=== PATIENT | male | born 1950 | race Caucasian/White ===

== ENCOUNTER 2018-05-18 01:32 | Outpatient (CLI) | payer MEDICARE ==
[2018-05-18 14:17] LABS: INR-International Normal Ratio 0.9; Prothrombin Time 12.4 SEC (12.0-14.7)
[2018-05-18 14:24] LABS: Anion Gap 18 mmol/L (10-20); BUN (Urea Nitrogen) 19 mg/dL (8.4-25.7); Calc. Creatinine Clearance 0 mL/min (70-130); Carbon Dioxide 24 mmol/L (23-31); Chloride 101 mmol/L (98-107); Estimated GFR-MDRD 66; Glucose 198 mg/dL (80-115); Potassium 4.6 mmol/L (3.5-5.1); Sodium 138 mmol/L (136-145)
[2018-05-18 14:37] LABS: Bilirubin Small (Negative); Blood, Urine Negative (Negative); Clarity CLEAR (Clear); Glucose, Urine (Dipstick) >=1000 mg/dL (Negative); Leukocyte Negative (Negative); Nitrite Negative (Negative); Protein, Urine (Dipstick) Negative (Neg-Trace); Specific Gravity, Urine 1.036 (1.002-1.036); Urobilinogen 0.2 mg/dL (0.2-1.0)
[2018-05-18 14:41] LABS: Bacteria/HPF None Seen HPF (None Seen); Hyaline Casts/LPF 0-3 HYALINE CAST LPF (0-3 Hyaline); Squamous Epithelial 0-3 HPF (0-3); WBC/HPF 0-3 HPF (0-3)
[2018-05-18 15:42] LABS: Band 3 % (5-11); Hemoglobin 15.2 g/dL (14.0-18.0); Lymphocytes 69 % (21-51); MDiff Complete? YES; Mean Corpuscular HGB CONC 33.3 g/dL (32.0-36.0); Mean Corpuscular Hemoglobin 28.8 pg (27.0-31.0); Mean Corpuscular Volume 86.7 fL (78.0-98.0); Mean Platelet Volume 7.3 fL (7.4-10.4); Monocytes 6 % (0-10); Neutrophil 20 % (42-75); Platelet Count 249 thou/uL (130-400); Platelet Morphology Comment Appears Adequate; RBC Distribution Width 13.2 % (11.5-14.5); Reactive Lymphocytes 2 % (0-10); Red Blood Cell (RBC) Count 5.25 mill/uL (4.70-6.10); White Blood Cell (WBC) Count 12.9 thou/uL (4.8-10.8)
== END 2018-05-18 01:33 | disposition home or self-care (01) ==
LOC: LABBT 01:32
PROVIDERS: ATTEND Orthopaedic Surgery
DX: Z01.812 Encounter for preprocedural laboratory examination (principal)
CPT/HCPCS: 80048; 81001; 85025; 85610; 87081

== ENCOUNTER 2018-05-30 05:30 | Inpatient (IN) | payer MEDICARE ==
[2018-05-18 12:39] VITALS: BMI 30.4
[2018-05-30] MEDS ORDERED: Sodium Chloride 0.9% 100 ML ONE (05:57)
[2018-05-30] MEDS ORDERED: Tranexamic Acid 1,000 MG/10 ML VIAL ONE (05:57)
[2018-05-30] MEDS ORDERED: Vancomycin HCl 1.5 GM in Sodium Chloride 0.9% 250 ML 300 ML IVPB SCH ×2 (06:15→20:00)
[2018-05-30] MEDS ORDERED: Midazolam HCl 2 mg/2 ml Vial ONE (06:27)
[2018-05-30] MEDS ORDERED: Fentanyl 100 MCG/2 ML VIAL ONE ×4 (06:27→10:05)
[2018-05-30] MEDS ORDERED: Lidocaine 1% (PF) 30 ML VIAL ONE (06:28)
[2018-05-30] MEDS ORDERED: Promethazine HCl 25 MG/ML VIAL IM PRN ×2 (07:28→11:47)
[2018-05-30] MEDS ORDERED: traMADol HCl 50 MG TAB PO PRN ×2 (07:28→11:47)
[2018-05-30] MEDS ORDERED: HYDROcodone/Acetaminophen 10/325 mg Tablet PO PRN ×3 (07:28→11:47)
[2018-05-30] MEDS ORDERED: Ropivacaine HCl/PF 250 ML in Premix Bag 1 BAG NERVE BLCK SCH (07:28)
[2018-05-30] MEDS ORDERED: Zolpidem Tartrate 5 MG TAB PO PRN ×2 (07:28→11:47)
[2018-05-30] MEDS ORDERED: Ondansetron PF 4 MG/2 ML Vial IVP PRN ×2 (07:28→11:47)
[2018-05-30] MEDS ORDERED: Bupivacaine HCl 0.5%/Epinephrine 1:200,000/PF 30 ml Vial ONE (08:01)
--- NOTE | 2018-05-30 08:47 | HP ---
HISTORY OF PRESENT ILLNESS: Mr. Vargas is a pleasant 68-year-old male with bilateral knee osteoarthritis, who presents with left knee pain. The patient has pain rising to position. The pain can be as high as 10/10. Previous injection gave good relief, but only a couple of days, crepitus range of motion. The patient is desired to proceed with operative intervention. PAST MEDICAL HISTORY: Hypertension, diabetes, hyperlipidemia, Funks disease, cardiac bypass. PAST SURGICAL HISTORY: Corneal transplant x2, penile implants, right total shoulder arthroplasty and bypass. ALLERGIES: NO KNOWN DRUG ALLERGIES. MEDICATIONS:see attached list 1. Aspirin. 2. Farxiga. 3. Gemfibrozil. 4. Glipizide. 5. Lisinopril. 6. Meloxicam. 7. Metformin. 8. Omeprazole. 9. Tramadol. SOCIAL HISTORY: The patient is a nonsmoker and no current alcohol. Currently retired. The patient is and is at bedside. PHYSICAL EXAMINATION: GENERAL: Alert and oriented male, in no acute distress, resting comfortably in bed. HEENT: Normocephalic, atraumatic. Extraocular muscles intact. HEART: Regular rate. LUNGS: Symmetric chest rise. ABDOMEN: Soft, nontender. EXTREMITIES: The patient's left knee shows range of motion from about 0 to 120. The patient has good straight leg raise. Neurovascularly intact distally. The patient has pain along the medial joint line. IMAGING DATA: Radiographs of his knee show varus angulation, joint space narrowing, and osteophyte formation consistent with osteoarthritis. ASSESSMENT: 1. Left knee osteoarthritis. 2. Diabetes. 3. Hypertension. 4. Reflux. 5. Coronary artery disease. PLAN: The patient will be taken to the OR for left knee arthroplasty, understands the risks and benefits. The patient received cardiac clearance from Dr. Matthews. I discussed with the patient the risks and benefits of surgery, pain, scar, bleeding, infection, damage to vital structures, failure of procedure and need for hardware removal, revision, and loss of life or limb. The patient understood the risks and benefits and elects to proceed. The patient will be followed in-house by Medicine and Anesthesia. Job ID: [id number] [facility]
--- NOTE | 2018-05-30 09:55 | RAD ---
RIGHIT KNEE TWO VIEWS: History: Knee surgery. Joint replacement. FINDINGS: Total knee prosthesis in place without perihardware lucency. Soft tissue swelling and gas and intraca psular gas. IMPRESSION: Right knee prosthesis is in good radiograph position. POS: [facility]
[2018-05-30] MEDS ORDERED: Acetaminophen 1,000 MG in Premix Bag 1 BAG IVPB SCH (10:15)
[2018-05-30] MEDS ORDERED: Ketorolac Tromethamine 30 MG/ML VIAL IVP PRN (11:47)
[2018-05-30] MEDS ORDERED: diphenhydrAMINE 25 MG CAP PO PRN (11:47)
[2018-05-30] MEDS ORDERED: Fentanyl 100 MCG/2 ML VIAL SLOW IVP PRN ×2 (11:47)
[2018-05-30] MEDS ORDERED: Acetaminophen 325 MG TAB PO PRN (11:47)
[2018-05-30] MEDS ORDERED: Aspirin 81 mg Enteric Coated Tablet PO SCH (12:45)
--- NOTE | 2018-05-30 13:33 | OP ---
DATE OF PROCEDURE: 05/30/2018 PREOPERATIVE. DIAGNOSIS: Left knee osteoarthritis. POSTOPERATIVE DIAGNOSIS: Left knee osteoarthritis. PROCEDURE PERFORMED: Left total knee arthroplasty. CO FOUNDER AND CTO: Donavan Camacho PA-C ANESTHESIA: The patient received an LMA with a single-shot sciatic and adductor canal. ESTIMATED BLOOD LOSS: 100 mL. TOURNIQUET TIME: 68 minutes at 300 mmHg. ANTIBIOTICS: Ancef 2 g, vancomycin 1.5 g, and TXA 1 g. IMPLANTS: Fly Triathlon size 5 left femur, A32 patella, a size 4 tibial baseplate, and a 4 CS 9 mm poly. COMPLICATIONS: None. HISTORY OF PRESENT ILLNESS: Mr. Vargas is a 68-year-old male, who presented to me with left knee pain for greater than a year. The patient's pain resolved in a sitting position. The patient's pain is severe, rated as 10/10. Injection provided good relief, failed conservative measures, desired to proceed with left knee arthroplasty, have been cleared by his driller and reamer. He understood the risks and benefits of surgery to include pain, scar, bleeding, infection, damage to vital structures, decreased range of motion and strength, nonunion, malunion, fracture , blood loss, need for further interventions, loss of life or limb. The patient understood risks and benefits and elected to proceed. DESCRIPTION OF PROCEDURE: Time-out was performed designating the patient's left lower extremity as the operative site, based on site, consents, and marking. After time-out, the patient's left lower extremity was prepped and draped in sterile fashion. Tourniquet was brought up for 68 minutes. Anterior midline incision was made medial patellar arthrotomy exposing the knee and substantial synovitis and medial joint space disease. Minimal lateral changes noted in patellar. We exposed the ACL, excised it, took down the medial lateral meniscus, excised the fat pad, took down the medial soft tissue release and then we pinned our jig into position, mapped out our femur cut, 8, 9, 0 degrees posterior 4 degrees slope. We made our cut, removed the bone and pinned 3-degree external rotation guide in place. We sized to a size 5 femur. It had a good overall alignment. No notching. We cut our femur block anterior and posterior chamfer cuts, we removed the bone. We then moved to our tibia. We released our ACL, took the PCL distally for exposure. Pinned our trail into position cut at 1, 2, and 7, 2 degrees of varus and 4 degrees of slope, removed the osteophytes. We then moved the lamina community health counselor, moved medially, had to rasp medially. I think the saw blade kicked up a little bit on the medial aspect of the knee, removed some medial osteophytes and took down the osteotome and removed osteophytes anything out posteriorly exposed, then released any osteophytes on the PCL. We then moved laterally. The same thing removed the lateral meniscus and removed the soft tissue space. We then pinned our trail into position. We choose a 4 to 5, just a little too much overhang medial to lateral. We placed it in-line with the tibial tubercle anterior 1/3rd down the tibia to the second ray, pinned into position, placed our femur. We tracked the patient had good overall flexion, extension, had a stable drawer. He had overall good alignment. I would like the positions of a trailed implants, had good full extension. We then drilled our femoral lugs. We sized the patella from about 28 to 22 and cut down to fit roughly 15 and placed A32 patella. We tracked the patella, it tracked well. We then everted and removed and cut our keel for tibia. We then removed all implants, cemented our tibia, placed our poly, cemented our femur, removed excess cement. We placed our patellar, removed excess cement, flex the knee back up, removed all excess cement, and washed the joint out. We then closed the medial arthrotomy with 2 Vicryl and 2-0 Quill and glue. The patient will be followed inhouse, likely stay 2 days, given his history of pain. The patient will follow up in 3 weeks. Job ID: [id number] [facility]
[2018-05-30] MEDS: HYDROcodone/Acetaminophen 10/325 mg Tablet PO PRN ×3 (13:51→22:50)
--- NOTE | 2018-05-30 13:53 | PDOC.PN ---
- Subjective Encounter Start Date: 05/30/18 Encounter Start Time: 13:00 Subjective: no pain, sob or chest pain -: is eating lunch - Objective MAR Reviewed: Yes Vital Signs & Weight: Weight Weight 200 lb Phys Exam - Physical Examination HEENT: PERRLA, moist MMs Neck: no JVD, supple Respiratory: no wheezing, no rales Cardiovascular: RRR, no significant murmur Gastrointestinal: soft, non-tender, no distention, positive bowel sounds Musculoskeletal: pulses present left knee in dressing Neurological: non-focal, moves all 4 limbs Psychiatric: normal affect, A&O x 3 Dx/Plan (1) Status post total knee replacement, left Code(s): Z96.652 - PRESENCE OF LEFT ARTIFICIAL KNEE JOINT Status: Acute (2) CAD (coronary artery disease) Code(s): I25.10 - ATHSCL HEART DISEASE OF [place] CORONARY ARTERY W/O ANG PCTRS Status: Chronic Qualifiers: Coronary Disease-Associated Artery/Lesion type: bypass graft [place] vs. transplanted heart: [place] heart Associated angina: without angina Qualified Code(s): I25.810 - Atherosclerosis of coronary artery bypass graft(s) without angina pectoris Comment: 2011 cabg x3 (3) Diabetes mellitus Code(s): E11.9 - TYPE 2 DIABETES MELLITUS WITHOUT COMPLICATIONS Status: Chronic Qualifiers: Diabetes mellitus type: type 2 Diabetes mellitus mcc insulin use: without mcc use Diabetes mellitus complication status: with unspecified complications Qualified Code(s): E11.8 - Type 2 diabetes mellitus with unspecified complications (4) Dyslipidemia Code(s): E78.5 - HYPERLIPIDEMIA, UNSPECIFIED Status: Chronic - Plan on asp bid for dvt prophylaxis -: continue metformin, lisinopril, coverage ac &hs -: fentanyl and narco prn, ropivacaine nr block -: Post op PT per ortho adv -: hemostable * . Review of Systems - Medications/Allergies Allergies/Adverse Reactions: Allergies Allergy/AdvReac Type Severity Reaction Status Date / Time No Known Allergies Allergy Verified 05/18/18 12:40 Medications: Current Medications Acetaminophen (Tylenol) 650 mg PO Q4H PRN PRN Reason: Headache/Fever or Pain Hydrocodone Bitart/Acetaminophen ([place] 10/325) 1 tab PO Q4H PRN PRN Reason: Pain (1-3) Hydrocodone Bitart/Acetaminophen ([place] 10/325) 2 tab PO Q4H PRN PRN Reason: PAIN (4-6) Aspirin (Ecotrin) 81 mg PO BID [facility] Aspirin (Ecotrin) 81 mg PO NOW [facility] Stop: 05/30/18 14:45 Diphenhydramine HCl (Benadryl) 25 mg PO Q6H PRN PRN Reason: Itching Fentanyl (Sublimaze) 50 mcg IV Q1H PRN PRN Reason: BREAKTHROUGH PAIN Ferrous Gluconate (Fergon) 324 mg PO BID-[facility] Glipizide (Glucotrol) 5 mg PO HS [facility] Ropivacaine 250 ml/ Device 250 mls @ 0 mls/hr NERVE BLCK INF [facility] Acetaminophen 1,000 mg/ Device 100 mls @ 400 mls/hr IVPB ONE [facility] Stop: 05/31/18 10:16 Cefazolin Sodium/Dextrose 2 gm (/ Device) 50 mls @ 100 mls/hr IVPB Q8HR [facility] Stop: 05/30/18 22:29 Sodium Chloride (Normal Saline 0.9%) 1,000 mls @ 100 mls/hr IV .Q10H [facility] Vancomycin HCl 1.5 gm/ Sodium (Chloride) 300 mls @ 200 mls/hr IVPB 1999 [facility] Stop: 05/30/18 21:29 Iron/Minerals/Multivitamins (Theragran M) 1 tab PO DAILY [facility] Lisinopril (Zestril) 5 mg PO BID [facility] Metformin HCl (Glucophage) 1,000 mg PO BID [facility] Ondansetron HCl (Zofran) 4 mg IVP Q6H PRN PRN Reason: Nausea/Vomiting Promethazine HCl (Phenergan) 12.5 mg IM Q4H PRN PRN Reason: Nausea/Vomiting Senna/Docusate Sodium (Senokot S) 2 tab PO BID [facility] Sodium Chloride (Flush - Normal Saline) 10 ml IVF PRN PRN PRN Reason: Saline Flush Tramadol HCl (Ultram) 50 mg PO Q6H PRN PRN Reason: Mild Pain (1-3) Tramadol HCl (Ultram) 100 mg PO Q6H PRN PRN Reason: Moderate Pain 4-6 Zolpidem Tartrate (Ambien) 5 mg PO HSPRN PRN PRN Reason: Insomnia
[2018-05-30] MEDS: CEFAZOLIN 2 GM in Premix Bag 1 BAG IVPB SCH ×2 (13:58→22:51)
[2018-05-30] MEDS: Sodium Chloride 0.9% 1,000 ML IV SCH ×2 (14:00→22:51)
[2018-05-30] MEDS ORDERED: Ropivacaine 0.2% HCl/PF (40 MG/20 ML VIAL) ONE (14:44)
[2018-05-30] MEDS ORDERED: Ropivacaine 0.5% HCl/PF (150 MG/30 ML VIAL) ONE (14:44)
[2018-05-30] MEDS ORDERED: Ketorolac Tromethamine 30 MG/ML VIAL ONE (15:25)
[2018-05-30] MEDS ORDERED: PROPOFOL 200 MG/20 ML VIAL ONE (15:25)
[2018-05-30] MEDS ORDERED: Ondansetron PF 4 MG/2 ML Vial ONE (15:25)
[2018-05-30] MEDS ORDERED: Dexamethasone 20 MG/5 ML VIAL ONE (15:25)
[2018-05-30] MEDS ORDERED: Metoprolol Tartrate 5 MG/5 ML VIAL ONE (15:25)
[2018-05-30] MEDS: metFORMIN 500 MG TAB PO SCH (17:29)
[2018-05-30] MEDS: Gemfibrozil 600 MG TAB PO SCH (17:29)
[2018-05-30] MEDS ORDERED: Dextrose 50% Abboject 50 ML SYRINGE IVP PRN (18:55)
[2018-05-30] MEDS ORDERED: Dextrose 5% in Water 1,000 ML IV PRN (18:55)
[2018-05-30] MEDS: HumaLOG 300 UNITS/3 ML VIAL SC PRN (19:22)
[2018-05-30] MEDS: Aspirin 81 mg Enteric Coated Tablet PO SCH (21:00)
[2018-05-30] MEDS ORDERED: metFORMIN 500 MG TAB PO SCH (21:00)
[2018-05-30] MEDS ORDERED: glipiZIDE 5 MG TAB PO SCH ×2 (21:00)
[2018-05-30] MEDS ORDERED: Lisinopril 5 MG TAB PO SCH (21:00)
[2018-05-31] MEDS: traMADol HCl 50 MG TAB PO PRN (00:12)
[2018-05-31] MEDS: Fentanyl 100 MCG/2 ML VIAL IV PRN ×2 (01:01→02:24)
[2018-05-31] MEDS: HYDROcodone/Acetaminophen 10/325 mg Tablet PO PRN (02:35)
[2018-05-31] MEDS: fentaNYL Citrate/PF 2,000 MCG in Sodium Chloride 0.9% 60 ML IV PRN ×2 (04:32→22:23)
[2018-05-31 04:59] LABS: Hemoglobin 11.7 g/dL (14.0-18.0); Mean Corpuscular Hemoglobin 29.7 pg (27.0-31.0); Mean Corpuscular Volume 87.3 fL (78.0-98.0); Mean Platelet Volume 7.2 fL (7.4-10.4); Platelet Count 282 thou/uL (130-400); Red Blood Cell (RBC) Count 3.94 mill/uL (4.70-6.10); White Blood Cell (WBC) Count 16.8 thou/uL (4.8-10.8)
[2018-05-31] MEDS: Gemfibrozil 600 MG TAB PO SCH ×2 (06:30→17:01)
[2018-05-31] MEDS: HumaLOG 300 UNITS/3 ML VIAL SC PRN ×3 (06:31→17:03)
[2018-05-31] MEDS: Sodium Chloride 0.9% 1,000 ML IV SCH ×2 (06:31→17:11)
[2018-05-31 07:52] LABS: Anion Gap 16 mmol/L (10-20); BUN (Urea Nitrogen) 22 mg/dL (8.4-25.7); Calc. Creatinine Clearance 81 mL/min (70-130); Calcium 9.1 mg/dL (7.8-10.44); Carbon Dioxide 24 mmol/L (23-31); Chloride 102 mmol/L (98-107); Estimated GFR-MDRD 65; Glucose 135 mg/dL (80-115); Potassium 3.9 mmol/L (3.5-5.1); Sodium 138 mmol/L (136-145)
[2018-05-31] MEDS ORDERED: Chloraseptic Spray 180 ml Bottle PO PRN (07:54)
[2018-05-31] MEDS ORDERED: Non-Formulary Item 1 EACH (Dapagliflozin Propanediol [Farxiga] 1 TAB) PO SCH (09:00)
[2018-05-31] MEDS: Senokot S 8.6-50 MG TAB PO SCH ×2 (09:05→20:15)
[2018-05-31] MEDS: Multivitamin W/ Minerals 1 TAB PO SCH (09:06)
[2018-05-31] MEDS: Aspirin 81 mg Enteric Coated Tablet PO SCH ×2 (09:06→20:16)
[2018-05-31] MEDS: Ferrous Gluconate 324 MG TAB PO SCH ×2 (09:06→17:01)
[2018-05-31] MEDS: glipiZIDE 5 MG TAB PO SCH ×2 (09:06→17:00)
[2018-05-31] MEDS: Lisinopril 10 MG TAB PO SCH (09:06)
[2018-05-31] MEDS: metFORMIN 500 MG TAB PO SCH ×2 (09:07→17:02)
--- NOTE | 2018-05-31 12:31 | PDOC.PN ---
- Subjective Encounter Start Date: 05/31/18 Encounter Start Time: 08:15 Subjective: couldn't sleep last night due to pain, is on progressive care unit registered nurse now -: no pain at present -: no sob or chest pain or cough - Objective MAR Reviewed: Yes Vital Signs & Weight: Vital Signs (12 hours) Temp Pulse Resp BP Pulse Ox 05/31/18 12:00 98.3 F 82 20 198/95 H 96 05/31/18 07:57 98.4 F 88 18 178/79 H 96 05/31/18 04:11 98.4 F 81 20 164/77 H 96 Weight Admit Weight 200 lb Weight 200 lb I&O: 05/30/18 05/31/18 06/01/18 06:59 06:59 06:59 Intake Total 2860 Output Total 1300 Balance 1560 Result Diagrams: 05/31/18 04:02 05/31/18 04:02 Additional Labs: Accuchecks 05/31/18 05/31/18 05/30/18 11:28 06:31 20:53 POC Glucose 273 H 226 H 382 H 05/30/18 05/30/18 18:07 15:42 POC Glucose 423 H 410 H Phys Exam - Physical Examination HEENT: PERRLA, moist MMs Neck: no JVD, supple Respiratory: no wheezing, no rales Cardiovascular: RRR, no significant murmur Gastrointestinal: soft, non-tender, positive bowel sounds Musculoskeletal: no edema, pulses present left knee post op edema Neurological: non-focal, moves all 4 limbs Psychiatric: normal affect, A&O x 3 Dx/Plan (1) Status post total knee replacement, left Code(s): Z96.652 - PRESENCE OF LEFT ARTIFICIAL KNEE JOINT Status: Acute (2) CAD (coronary artery disease) Code(s): I25.10 - ATHSCL HEART DISEASE OF [place] CORONARY ARTERY W/O ANG PCTRS Status: Chronic Qualifiers: Coronary Disease-Associated Artery/Lesion type: bypass graft [place] vs. transplanted heart: [place] heart Associated angina: without angina Qualified Code(s): I25.810 - Atherosclerosis of coronary artery bypass graft(s) without angina pectoris Comment: 2011 cabg x3 (3) Diabetes mellitus Code(s): E11.9 - TYPE 2 DIABETES MELLITUS WITHOUT COMPLICATIONS Status: Chronic Qualifiers: Diabetes mellitus type: type 2 Diabetes mellitus bindery machine feeder offbearer insulin use: without bindery machine feeder offbearer use Diabetes mellitus complication status: with unspecified complications Qualified Code(s): E11.8 - Type 2 diabetes mellitus with unspecified complications (4) Dyslipidemia Code(s): E78.5 - HYPERLIPIDEMIA, UNSPECIFIED Status: Chronic - Plan dm a bit uncontrolled, increase glipizide to bid -: stable now on progressive care unit registered nurse with no pain -: to ambulate with PT per ortho adv -: not sure if his nerve block is working, anesthesia will f/u -: continue metformin, lisinopril, asp bid, narco, fentanyl prn * . Review of Systems - Medications/Allergies Allergies/Adverse Reactions: Allergies Allergy/AdvReac Type Severity Reaction Status Date / Time No Known Allergies Allergy Verified 05/18/18 12:40 Medications: Current Medications Acetaminophen (Tylenol) 650 mg PO Q4H PRN PRN Reason: Headache/Fever or Pain Hydrocodone Bitart/Acetaminophen ([place] 10/325) 1 tab PO Q4H PRN PRN Reason: Pain (1-3) Hydrocodone Bitart/Acetaminophen ([place] 10/325) 2 tab PO Q4H PRN PRN Reason: PAIN (4-6) Last Admin: 05/31/18 02:35 Dose: 2 tab Aspirin (Ecotrin) 81 mg PO BID [facility] Last Admin: 05/31/18 09:06 Dose: 81 mg Dextrose/Water (Dextrose 50%) 25 gm IVP PRN PRN PRN Reason: HYPOGLYCEMIA PROTOCOL Diphenhydramine HCl (Benadryl) 25 mg PO Q6H PRN PRN Reason: Itching Fentanyl (Sublimaze) 50 mcg IV Q1H PRN PRN Reason: BREAKTHROUGH PAIN Last Admin: 05/31/18 02:24 Dose: 50 mcg Ferrous Gluconate (Fergon) 324 mg PO BID-[facility] Last Admin: 05/31/18 09:06 Dose: 324 mg Gemfibrozil (Lopid) 600 mg PO BID-[facility] Last Admin: 05/31/18 06:30 Dose: 600 mg Glipizide (Glucotrol) 5 mg PO BID-[facility] Last Admin: 05/31/18 09:06 Dose: 5 mg Glucagon (Glucagon) 1 mg IM PRN PRN PRN Reason: HYPOGLYCEMIA PROTOCOL Ropivacaine 250 ml/ Device 250 mls @ 0 mls/hr NERVE BLCK INF [facility] Sodium Chloride (Normal Saline 0.9%) 1,000 mls @ 100 mls/hr IV .Q10H [facility] Last Admin: 05/31/18 06:31 Dose: Not Given Dextrose/Water (D5w) 1,000 mls @ 0 mls/hr IV INF PRN PRN Reason: HYPOGLYCEMIA PROTOCOL Fentanyl Citrate 2,000 mcg/ (Sodium Chloride) 100 mls @ 0 mls/hr IV INF PRN PRN Reason: Pain Last Admin: 05/31/18 04:32 Dose: 100 mls Insulin Human Lispro (Humalog) 0 units SC .MODERATE SLIDING SC PRN; Protocol PRN Reason: MODERATE SLIDING SCALE Last Admin: 05/31/18 06:31 Dose: 4 unit Iron/Minerals/Multivitamins (Theragran M) 1 tab PO DAILY [facility] Last Admin: 05/31/18 09:06 Dose: 1 tab Lisinopril (Zestril) 15 mg PO DAILY [facility] Last Admin: 05/31/18 09:06 Dose: 15 mg Metformin HCl (Glucophage) 1,000 mg PO BID-[facility] Last Admin: 05/31/18 09:07 Dose: 1,000 mg Farxiga 0 each PO DAILY [facility] Ondansetron HCl (Zofran) 4 mg IVP Q6H PRN PRN Reason: Nausea/Vomiting Pantoprazole Sodium (Protonix) 40 mg PO DAILY [facility] Last Admin: 05/31/18 09:07 Dose: 40 mg Phenol (Chloraseptic [place] 180 Ml Bot) 0 ml PO PRN PRN PRN Reason: SORE THROAT Promethazine HCl (Phenergan) 12.5 mg IM Q4H PRN PRN Reason: Nausea/Vomiting Senna/Docusate Sodium (Senokot S) 2 tab PO BID [facility] Last Admin: 05/31/18 09:05 Dose: 2 tab Sodium Chloride (Flush - Normal Saline) 10 ml IVF PRN PRN PRN Reason: Saline Flush Tramadol HCl (Ultram) 50 mg PO Q6H PRN PRN Reason: Mild Pain (1-3) Tramadol HCl (Ultram) 100 mg PO Q6H PRN PRN Reason: Moderate Pain 4-6 Last Admin: 05/31/18 00:12 Dose: 100 mg Zolpidem Tartrate (Ambien) 5 mg PO HSPRN PRN PRN Reason: Insomnia
[2018-05-31] MEDS ORDERED: Hydrochlorothiazide 25 MG TAB PO SCH (16:15)
[2018-05-31] MEDS ORDERED: Gemfibrozil 600 MG TAB PO SCH (16:30)
[2018-05-31] MEDS: Metoprolol Tartrate 25 MG TAB PO SCH (20:16)
[2018-05-31] MEDS ORDERED: cloNIDine 0.1 MG TAB PO PRN (21:27)
[2018-05-31 21:56] LABS: #Basophils 0.1 thou/uL (0.0-0.2); #Lymphocytes 4.9 thou/uL (1.20-3.40); #Neutrophils 10.7 thou/uL (1.40-6.50); %Basophils 0.8 % (0.0-1.0); %Eosinophils 0.2 % (0.0-10.0); %Lymphocytes 29.3 % (21.0-51.0); %Monocytes 6.1 % (0.0-10.0); %Neutrophils 63.6 % (42.0-75.0); Hemoglobin 11.7 g/dL (14.0-18.0); Mean Corpuscular HGB CONC 34.4 g/dL (32.0-36.0); Mean Corpuscular Hemoglobin 29.1 pg (27.0-31.0); Mean Corpuscular Volume 84.5 fL (78.0-98.0); Mean Platelet Volume 6.7 fL (7.4-10.4); Platelet Count 302 thou/uL (130-400); Red Blood Cell (RBC) Count 4.02 mill/uL (4.70-6.10); White Blood Cell (WBC) Count 16.7 thou/uL (4.8-10.8)
[2018-05-31 22:09] LABS: Anion Gap 17 mmol/L (10-20); BUN (Urea Nitrogen) 12 mg/dL (8.4-25.7); Calc. Creatinine Clearance 108 mL/min (70-130); Calcium 9.7 mg/dL (7.8-10.44); Carbon Dioxide 22 mmol/L (23-31); Chloride 98 mmol/L (98-107); Estimated GFR-MDRD Greater than 90; Glucose 156 mg/dL (80-115); Potassium 3.9 mmol/L (3.5-5.1); Sodium 133 mmol/L (136-145)
[2018-06-01 05:57] LABS: Hemoglobin 11.2 g/dL (14.0-18.0); Mean Corpuscular HGB CONC 34.2 g/dL (32.0-36.0); Mean Corpuscular Hemoglobin 29.5 pg (27.0-31.0); Mean Corpuscular Volume 86.4 fL (78.0-98.0); Mean Platelet Volume 6.8 fL (7.4-10.4); Platelet Count 309 thou/uL (130-400); RBC Distribution Width 12.9 % (11.5-14.5); Red Blood Cell (RBC) Count 3.78 mill/uL (4.70-6.10); White Blood Cell (WBC) Count 17.3 thou/uL (4.8-10.8)
[2018-06-01] MEDS: Gemfibrozil 600 MG TAB PO SCH ×2 (06:26→16:07)
[2018-06-01] MEDS: glipiZIDE 5 MG TAB PO SCH ×2 (06:26→16:04)
[2018-06-01] MEDS: Aspirin 81 mg Enteric Coated Tablet PO SCH ×2 (08:37→20:45)
[2018-06-01] MEDS: Senokot S 8.6-50 MG TAB PO SCH ×2 (08:37→20:45)
[2018-06-01] MEDS: Lisinopril 10 MG TAB PO SCH (08:37)
[2018-06-01] MEDS: Multivitamin W/ Minerals 1 TAB PO SCH (08:37)
[2018-06-01] MEDS: metFORMIN 500 MG TAB PO SCH ×2 (08:37→16:07)
[2018-06-01] MEDS: Hydrochlorothiazide 25 MG TAB PO SCH (08:38)
[2018-06-01] MEDS: Metoprolol Tartrate 25 MG TAB PO SCH ×2 (08:38→20:45)
[2018-06-01] MEDS: Ferrous Gluconate 324 MG TAB PO SCH ×2 (08:38→16:10)
[2018-06-01] MEDS ORDERED: HYDROcodone/Acetaminophen 10/325 mg Tablet PO PRN ×2 (10:20→10:21)
[2018-06-01] MEDS ORDERED: Acetaminophen 325 MG TAB PO PRN (10:22)
[2018-06-01] MEDS ORDERED: traMADol HCl 50 MG TAB PO PRN ×2 (10:23)
[2018-06-01] MEDS: HYDROcodone/Acetaminophen 10/325 mg Tablet PO PRN ×2 (13:39→20:43)
--- NOTE | 2018-06-01 14:15 | PDOC.PN ---
- Subjective Encounter Start Date: 06/01/18 Encounter Start Time: 14:12 Subjective: still with pain in operated knee w some swelling - Objective MAR Reviewed: Yes Vital Signs & Weight: Vital Signs (12 hours) Temp Pulse Resp BP BP Pulse Ox 06/01/18 12:00 97.7 F 74 20 144/78 H 96 06/01/18 07:55 97.4 F L 76 18 148/74 H 93 L 06/01/18 03:45 97.9 F 80 18 150/73 H 94 L Weight Admit Weight 200 lb Weight 200 lb I&O: 05/31/18 06/01/18 06/02/18 06:59 06:59 06:59 Intake Total 2860 810 Output Total 1300 Balance 1560 810 Result Diagrams: 06/01/18 05:41 05/31/18 21:40 Additional Labs: Accuchecks 06/01/18 06/01/18 05/31/18 11:53 05:50 20:40 POC Glucose 291 H 195 H 154 H 05/31/18 15:42 POC Glucose 201 H Laboratory Tests 05/31/18 05/31/18 06/01/18 04:02 21:40 05:41 WBC 16.8 H 16.7 H 17.3 H Phys Exam - Physical Examination Constitutional: NAD HEENT: PERRLA, moist MMs, sclera anicteric, oral pharynx no lesions Neck: no nodes, no JVD, supple, full ROM Respiratory: no wheezing, no rales, no rhonchi, clear to auscultation bilateral Cardiovascular: RRR, no significant murmur Gastrointestinal: soft, non-tender, no distention, positive bowel sounds Musculoskeletal: pulses present Left knee w some swelling and mild erythema Neurological: non-focal, normal sensation, moves all 4 limbs Psychiatric: normal affect, A&O x 3 Skin: no rash Dx/Plan (1) Leucocytosis Code(s): D72.829 - ELEVATED WHITE BLOOD CELL COUNT, UNSPECIFIED Status: Acute (2) Status post total knee replacement, left Code(s): Z96.652 - PRESENCE OF LEFT ARTIFICIAL KNEE JOINT Status: Acute (3) CAD (coronary artery disease) Code(s): I25.10 - ATHSCL HEART DISEASE OF [place] CORONARY ARTERY W/O ANG PCTRS Status: Chronic Qualifiers: Coronary Disease-Associated Artery/Lesion type: bypass graft [place] vs. transplanted heart: [place] heart Associated angina: without angina Qualified Code(s): I25.810 - Atherosclerosis of coronary artery bypass graft(s) without angina pectoris Comment: 2011 cabg x3 (4) Diabetes mellitus Code(s): E11.9 - TYPE 2 DIABETES MELLITUS WITHOUT COMPLICATIONS Status: Chronic Qualifiers: Diabetes mellitus type: type 2 Diabetes mellitus fdc insulin use: without fdc use Diabetes mellitus complication status: with unspecified complications Qualified Code(s): E11.8 - Type 2 diabetes mellitus with unspecified complications (5) Dyslipidemia Code(s): E78.5 - HYPERLIPIDEMIA, UNSPECIFIED Status: Chronic (6) Tobacco abuse Code(s): Z72.0 - TOBACCO USE Status: Chronic - Plan DVT proph w/SCDs watch for infection w peristant pain,swelling,leucocytosis in operated knee -: cont home meds as below -: IM team will follow -: am labs -: check UA and blood Cx as well * . Review of Systems - Review of Systems Constitutional: negative: fever, chills, sweats, weakness, malaise, other Respiratory: negative: Cough, Dry, Shortness of Breath, Hemoptysis, SOB with Excertion, Pleuritic Pain, Sputum, Wheezing Cardiovascular: negative: chest pain, palpitations, orthopnea, paroxysmal nocturnal dyspnea, edema, light headedness, other Gastrointestinal: negative: Nausea, Vomiting, Abdominal Pain, Diarrhea, Constipation, Melena, Hematochezia, Other Genitourinary: negative: Dysuria, Frequency, Incontinence, Hematuria, Retention , Other Musculoskeletal: Other Skin: negative: Rash, Lesions, [place], Bruising, Other Neurological: negative: Weakness, Numbness, Incoordination, Change in Speech, Confusion, Seizures, Other - Medications/Allergies Allergies/Adverse Reactions: Allergies Allergy/AdvReac Type Severity Reaction Status Date / Time No Known Allergies Allergy Verified 05/18/18 12:40 Medications: Current Medications Acetaminophen (Tylenol) 650 mg PO Q4H PRN PRN Reason: Headache/Fever Hydrocodone Bitart/Acetaminophen ([place] 10/325) 1 tab PO Q4H PRN PRN Reason: Pain (1-3) Hydrocodone Bitart/Acetaminophen ([place] 10/325) 2 tab PO Q4H PRN PRN Reason: PAIN (4-6) Last Admin: 06/01/18 13:39 Dose: 2 tab Hydrocodone Bitart/Acetaminophen ([place] 10/325) 1 tab PO Q4H PRN PRN Reason: Pain (1-4) Hydrocodone Bitart/Acetaminophen ([place] 10/325) 2 tab PO Q4H PRN PRN Reason: Pain (5-10) Aspirin (Ecotrin) 81 mg PO BID [facility] Last Admin: 06/01/18 08:37 Dose: 81 mg Clonidine (Catapres) 0.1 mg PO Q4H PRN PRN Reason: SBP GREATER THAN 160 Last Admin: 05/31/18 22:17 Dose: 0.1 mg Dextrose/Water (Dextrose 50%) 25 gm IVP PRN PRN PRN Reason: HYPOGLYCEMIA PROTOCOL Diphenhydramine HCl (Benadryl) 25 mg PO Q6H PRN PRN Reason: Itching Fentanyl (Sublimaze) 50 mcg IV Q1H PRN PRN Reason: BREAKTHROUGH PAIN Last Admin: 05/31/18 02:24 Dose: 50 mcg Ferrous Gluconate (Fergon) 324 mg PO BID-[facility] Last Admin: 06/01/18 08:38 Dose: 324 mg Gemfibrozil (Lopid) 600 mg PO BID-[facility] Last Admin: 06/01/18 06:26 Dose: 600 mg Glipizide (Glucotrol) 5 mg PO BID-[facility] Last Admin: 06/01/18 06:26 Dose: 5 mg Glucagon (Glucagon) 1 mg IM PRN PRN PRN Reason: HYPOGLYCEMIA PROTOCOL Hydrochlorothiazide (Hydrochlorothiazide) 25 mg PO DAILY [facility] Last Admin: 06/01/18 08:38 Dose: 25 mg Ropivacaine 250 ml/ Device 250 mls @ 0 mls/hr NERVE BLCK INF [facility] Dextrose/Water (D5w) 1,000 mls @ 0 mls/hr IV INF PRN PRN Reason: HYPOGLYCEMIA PROTOCOL Insulin Human Lispro (Humalog) 0 units SC .MODERATE SLIDING SC PRN; Protocol PRN Reason: MODERATE SLIDING SCALE Last Admin: 05/31/18 17:03 Dose: 4 unit Iron/Minerals/Multivitamins (Theragran M) 1 tab PO DAILY [facility] Last Admin: 06/01/18 08:37 Dose: 1 tab Lisinopril (Zestril) 15 mg PO DAILY [facility] Last Admin: 06/01/18 08:37 Dose: 15 mg Metformin HCl (Glucophage) 1,000 mg PO BID-[facility] Last Admin: 06/01/18 08:37 Dose: 1,000 mg Metoprolol Tartrate (Lopressor) 25 mg PO BID [facility] Last Admin: 06/01/18 08:38 Dose: 25 mg Farxiga 0 each PO DAILY [facility] Ondansetron HCl (Zofran) 4 mg IVP Q6H PRN PRN Reason: Nausea/Vomiting Last Admin: 05/31/18 20:46 Dose: 4 mg Pantoprazole Sodium (Protonix) 40 mg PO DAILY [facility] Last Admin: 06/01/18 08:38 Dose: 40 mg Phenol (Chloraseptic [place] 180 Ml Bot) 0 ml PO PRN PRN PRN Reason: SORE THROAT Promethazine HCl (Phenergan) 12.5 mg IM Q4H PRN PRN Reason: Nausea/Vomiting Senna/Docusate Sodium (Senokot S) 2 tab PO BID [facility] Last Admin: 06/01/18 08:37 Dose: 2 tab Sodium Chloride (Flush - Normal Saline) 10 ml IVF PRN PRN PRN Reason: Saline Flush Tramadol HCl (Ultram) 50 mg PO Q6H PRN PRN Reason: Mild Pain (1-3) Tramadol HCl (Ultram) 100 mg PO Q6H PRN PRN Reason: Moderate Pain 4-6 Last Admin: 05/31/18 00:12 Dose: 100 mg Tramadol HCl (Ultram) 50 mg PO Q6H PRN PRN Reason: PAIN SCALE 1-5 Tramadol HCl (Ultram) 100 mg PO Q6H PRN PRN Reason: PAIN SCALE 6-10 Zolpidem Tartrate (Ambien) 5 mg PO HSPRN PRN PRN Reason: Insomnia
[2018-06-01] MEDS: FARXIGA PO SCH (15:31)
[2018-06-01] MEDS: traMADol HCl 50 MG TAB PO PRN ×2 (16:05→22:06)
[2018-06-01] MEDS: HumaLOG 300 UNITS/3 ML VIAL SC PRN ×2 (16:11→21:01)
[2018-06-01 22:39] LABS: Bilirubin Negative (Negative); Blood, Urine Negative (Negative); Clarity CLEAR (Clear); Glucose, Urine (Dipstick) >=1000 mg/dL (Negative); Leukocyte Negative (Negative); Nitrite Negative (Negative); Protein, Urine (Dipstick) Negative (Neg-Trace); Specific Gravity, Urine 1.021 (1.002-1.036); Urobilinogen 0.2 mg/dL (0.2-1.0)
[2018-06-01 22:40] LABS: Bacteria/HPF None Seen HPF (None Seen); Hyaline Casts/LPF 0-3 HYALINE CAST LPF (0-3 Hyaline); RBC/HPF 0-3 HPF (0-3); Squamous Epithelial None Seen HPF (0-3); WBC/HPF 0-3 HPF (0-3)
[2018-06-01 22:44] LABS: Urine Culture Reflex No No
[2018-06-01] MEDS: Fentanyl 100 MCG/2 ML VIAL IV PRN (23:46)
[2018-06-02] MEDS: HYDROcodone/Acetaminophen 10/325 mg Tablet PO PRN ×3 (00:57→09:22)
[2018-06-02 05:03] LABS: Hemoglobin 10.3 g/dL (14.0-18.0); Mean Corpuscular HGB CONC 34.6 g/dL (32.0-36.0); Mean Corpuscular Hemoglobin 29.9 pg (27.0-31.0); Mean Corpuscular Volume 86.6 fL (78.0-98.0); Mean Platelet Volume 7.3 fL (7.4-10.4); Platelet Count 313 thou/uL (130-400); RBC Distribution Width 12.9 % (11.5-14.5); Red Blood Cell (RBC) Count 3.45 mill/uL (4.70-6.10); White Blood Cell (WBC) Count 14.6 thou/uL (4.8-10.8)
[2018-06-02 05:19] LABS: Anion Gap 13 mmol/L (10-20); BUN (Urea Nitrogen) 21 mg/dL (8.4-25.7); Calc. Creatinine Clearance 103 mL/min (70-130); Calcium 9.5 mg/dL (7.8-10.44); Carbon Dioxide 26 mmol/L (23-31); Chloride 98 mmol/L (98-107); Estimated GFR-MDRD 86; Glucose 187 mg/dL (80-115); Potassium 3.3 mmol/L (3.5-5.1); Sodium 134 mmol/L (136-145)
[2018-06-02] MEDS: Gemfibrozil 600 MG TAB PO SCH (06:20)
[2018-06-02] MEDS: glipiZIDE 5 MG TAB PO SCH (06:20)
[2018-06-02] MEDS: HumaLOG 300 UNITS/3 ML VIAL SC PRN (06:21)
[2018-06-02 08:04] VITALS: BP 131/61; TEMP 97.9
[2018-06-02] MEDS: Lisinopril 10 MG TAB PO SCH (08:16)
[2018-06-02] MEDS: Senokot S 8.6-50 MG TAB PO SCH (08:16)
[2018-06-02] MEDS: Aspirin 81 mg Enteric Coated Tablet PO SCH (08:16)
[2018-06-02] MEDS: Metoprolol Tartrate 25 MG TAB PO SCH (08:18)
[2018-06-02] MEDS: Multivitamin W/ Minerals 1 TAB PO SCH (08:18)
[2018-06-02] MEDS: metFORMIN 500 MG TAB PO SCH (08:18)
[2018-06-02] MEDS: Hydrochlorothiazide 25 MG TAB PO SCH (08:18)
[2018-06-02] MEDS: Ferrous Gluconate 324 MG TAB PO SCH (08:18)
[2018-06-02] MEDS ORDERED: Non-Formulary Item 1 EACH (Omeprazole [Omeprazole] 1 TAB) PO SCH (09:00)
== END 2018-06-02 10:11 | disposition home or self-care (01) | DRG 470 ==
LOC: SDC 05:30 → SJJU 10:32 → OBSVTOIN 05-31 16:23
PROVIDERS: ADMIT Orthopaedic Surgery; ATTEND Orthopaedic Surgery
PROC: 0SRD0J9 Replacement of Left Knee Joint with Synthetic Substitute, Cemented, Open Approach (ICD-10-PCS; principal; 2018-06-01)
PROC: 3E0T3BZ Introduction of Anesthetic Agent into Peripheral Nerves and Plexi, Percutaneous Approach (ICD-10-PCS; 2018-06-01)
DX: M17.0 Bilateral primary osteoarthritis of knee (principal); I10 Essential (primary) hypertension; E11.9 Type 2 diabetes mellitus without complications; E78.5 Hyperlipidemia, unspecified; I25.10 Atherosclerotic heart disease of native coronary artery without angina pectoris; K21.9 Gastro-esophageal reflux disease without esophagitis; Z95.1 Presence of aortocoronary bypass graft; Z94.7 Corneal transplant status; Z96.611 Presence of right artificial shoulder joint; Z79.82 Long term (current) use of aspirin; Z79.84 Long term (current) use of oral hypoglycemic drugs; Z79.899 Other long term (current) drug therapy; Z72.0 Tobacco use
CPT/HCPCS: 36415; 36416; 80048; 81001; 85027; 86850; 86900; 86901; 87040; C1713; C1776; J0131; J0670; J1100; J1885; J2001; J2250; J2405; J2704; J2795; J3010; J3370; J3490; J7050

== ENCOUNTER 2018-07-15 07:04 | Emergency (ER) | payer MEDICARE ==
[2018-07-15 07:45] LABS: #Basophils 0.1 thou/uL (0.0-0.2); #Eosinphils 0.1 thou/uL (0.0-0.7); #Lymphocytes 5.8 thou/uL (1.20-3.40); #Monocytes 0.7 thou/uL (0.11-0.59); #Neutrophils 8.9 thou/uL (1.40-6.50); %Basophils 0.8 % (0.0-1.0); %Eosinophils 0.6 % (0.0-10.0); %Monocytes 4.7 % (0.0-10.0); %Neutrophils 56.9 % (42.0-75.0); Hemoglobin 12.1 g/dL (14.0-18.0); Mean Corpuscular HGB CONC 34.3 g/dL (32.0-36.0); Mean Corpuscular Hemoglobin 29.4 pg (27.0-31.0); Mean Corpuscular Volume 85.7 fL (78.0-98.0); Mean Platelet Volume 6.6 fL (7.4-10.4); Platelet Count 354 thou/uL (130-400); RBC Distribution Width 13.7 % (11.5-14.5); Red Blood Cell (RBC) Count 4.11 mill/uL (4.70-6.10); White Blood Cell (WBC) Count 15.7 thou/uL (4.8-10.8)
[2018-07-15 08:03] LABS: Anion Gap 17 mmol/L (10-20); BUN (Urea Nitrogen) 11 mg/dL (8.4-25.7); Calc. Creatinine Clearance 0 mL/min (70-130); Calcium 9.3 mg/dL (7.8-10.44); Carbon Dioxide 22 mmol/L (23-31); Chloride 103 mmol/L (98-107); Estimated GFR-MDRD Greater than 90; Glucose 184 mg/dL (80-115); Potassium 3.7 mmol/L (3.5-5.1); Sodium 138 mmol/L (136-145)
--- NOTE | 2018-07-15 08:03 | ULT ---
EXAM: Left lower extremity venous Doppler PROVIDED CLINICAL HISTORY: Left foot numbness and foot pain FINDINGS: Grayscale and color Doppler sonography with spectral analysis was performed of the left common femora l, femoral, popliteal, posterior tibial, greater saphenous and profunda femoral veins. The evaluated venous structures demonstrate a normal sonographic appearance. IMPRESSION: No sonographic evidence for left lower extremity deep venous thrombosis.
[2018-07-15] MEDS ORDERED: Morphine 4 MG/ML VIAL ONE ×3 (08:31→09:04)
--- NOTE | 2018-07-15 08:32 | RAD ---
EXAM: 3 views left foot PROVIDED CLINICAL HISTORY: Pain FINDINGS: There is no evidence for fracture or other acute osseous abnormality. Alignment appears anatomic. Fir st MTP degenerative arthrosis. Vascular calcifications are seen IMPRESSION: No evidence for an acute osseous abnormality. If there is persistent clinical concern, conservative m anagement and follow-up imaging advised.
[2018-07-15] MEDS ORDERED: cefTRIAXone\\ROCEPHIN 2 GM VIAL ONE ×2 (08:53→09:04)
== END 2018-07-15 09:50 | disposition home or self-care (01) ==
LOC: ERS 07:04
DX: L03.116 Cellulitis of left lower limb (principal); D72.829 Elevated white blood cell count, unspecified; I10 Essential (primary) hypertension; E11.9 Type 2 diabetes mellitus without complications; E78.5 Hyperlipidemia, unspecified; F17.210 Nicotine dependence, cigarettes, uncomplicated
CPT/HCPCS: 36415; 80048; 85025; 87040; 96365; 96375; J0696; J2270

== ENCOUNTER 2018-09-22 08:00 | Inpatient (IN) | payer MEDICARE ==
[2018-09-22 09:35] LABS: Hemoglobin 12.1 g/dL (14.0-18.0); Mean Corpuscular Hemoglobin 30.1 pg (27.0-31.0); Mean Corpuscular Volume 88.5 fL (78.0-98.0); Mean Platelet Volume 7.1 fL (7.4-10.4); Platelet Count 280 thou/uL (130-400); RBC Distribution Width 13.6 % (11.5-14.5); Red Blood Cell (RBC) Count 4.01 mill/uL (4.70-6.10)
[2018-09-22 09:51] LABS: Anion Gap 17 mmol/L (10-20); BUN (Urea Nitrogen) 25 mg/dL (8.4-25.7); Calc. Creatinine Clearance 79 mL/min (70-130); Calcium 7.8 mg/dL (7.8-10.44); Carbon Dioxide 24 mmol/L (23-31); Chloride 104 mmol/L (98-107); Estimated GFR-MDRD 69; Glucose 146 mg/dL (80-115); Sodium 141 mmol/L (136-145)
[2018-09-22] MEDS ORDERED: Sodium Chloride 0.9% 10 ML ONE (09:55)
[2018-09-22 09:57] LABS: Band 1 % (5-11); Lymphocytes 48 % (21-51); MDiff Complete? YES; Monocytes 3 % (0-10); Neutrophil 42 % (42-75); Platelet Morphology Comment Appears Adequate; RBC Morphology Normal; Reactive Lymphocytes 3 % (0-10)
[2018-09-22] MEDS ORDERED: Bacitracin Zinc Ointment 30 gm TUBE ONE (10:06)
[2018-09-22] MEDS ORDERED: Fentanyl 100 MCG/2 ML VIAL ONE ×5 (10:17→13:18)
[2018-09-22] MEDS ORDERED: HYDROmorphone 2 MG/ML VIAL SLOW IVP PRN (12:12)
[2018-09-22] MEDS ORDERED: Meperidine HCl/PF 25 MG/ML VIAL SLOW IVP PRN (12:12)
[2018-09-22] MEDS ORDERED: PACU-Morphine 4MG/ML VIAL SLOW IVP PRN (12:12)
[2018-09-22] MEDS ORDERED: Promethazine HCl 25 MG/ML VIAL SLOW IVP PRN (12:12)
[2018-09-22] MEDS ORDERED: Promethazine HCl 25 MG/ML VIAL IM PRN (12:12)
[2018-09-22] MEDS ORDERED: Morphine Sulfate 2 MG/ML SYRINGE SLOW IVP PRN (12:12)
[2018-09-22] MEDS ORDERED: Ondansetron HCl/PF 4 MG/2 ML Vial IVP PRN (12:12)
[2018-09-22] MEDS ORDERED: Ketorolac Tromethamine 30 MG/ML VIAL IVP PRN (12:12)
[2018-09-22] MEDS ORDERED: Morphine 4 MG/ML VIAL ONE (12:17)
[2018-09-22] MEDS ORDERED: Labetalol HCl 100 MG/20 ML VIAL ONE (12:47)
[2018-09-22] MEDS ORDERED: hydrALAZINE 20 MG/ML VIAL ONE (13:11)
[2018-09-22] MEDS ORDERED: Morphine 2 MG/ML SYRINGE ONE ×2 (13:19→13:40)
[2018-09-22] MEDS ORDERED: HYDROmorphone 2 MG/ML VIAL ONE (13:54)
--- NOTE | 2018-09-22 14:48 | OP ---
DATE OF PROCEDURE: 09/22/2018 FUR REMODELER: Ludin Thomason PA-C PROCEDURE PERFORMED: Posterior cervical laminectomy C2 through C4, posterolateral arthrodesis, C2 through C4, demineralized bone matrix, local morselized autograft, lateral screw instrumentation, C2 through C4. DESCRIPTION OF PROCEDURE: The patient was brought to the operating room and intubated. He was rolled in the prone position on gel-filled chest rolls with the head fixed in a Aavni head of drama in a neutral position. An incision was made exposing C2 through C4 bilaterally and the level was confirmed by x-ray. We performed complete C4, complete C3, and complete C2 laminectomies, completely decompressing the spinal cord bilaterally. We next placed lateral mass screws at C3 and C4 and C2 body screw on the right. These were connected by la, connected by nuts, which were final tightened. Positioning of all hardware was confirmed by x-ray. The wound was extensively irrigated and MAC hemostasis was secured. A combination of demineralized bone matrix and local morselized autograft was laid over the left lamina and posterolateral surfaces for the purpose of arthrodesis. Vancomycin powder was applied and the wound was then closed in anatomic layers. Job ID: [id number]
[2018-09-22] MEDS ORDERED: traMADol HCl 50 MG TAB PO PRN ×2 (16:01)
[2018-09-22] MEDS ORDERED: Mag-Al 1200 mg/1200 mg/30 ML UDCUP PO PRN (16:01)
[2018-09-22] MEDS ORDERED: Milk Of Magnesia 30 ML UDCUP PO PRN (16:01)
[2018-09-22] MEDS ORDERED: diphenhydrAMINE 50 MG/ML VIAL IVP PRN (16:01)
[2018-09-22] MEDS ORDERED: HYDROcodone/Acetaminophen 10/325 mg Tablet PO PRN (16:01)
[2018-09-22] MEDS ORDERED: diphenhydrAMINE 25 MG CAP PO PRN (16:01)
[2018-09-22] MEDS ORDERED: Ondansetron PF 4 MG/2 ML Vial ONE (16:28)
[2018-09-22] MEDS ORDERED: Glycopyrrolate 0.2 MG/ML 5 ML SYRINGE ONE (16:28)
[2018-09-22] MEDS ORDERED: Rocuronium Bromide 10 MG/ML (10ML VIAL) ONE (16:28)
[2018-09-22] MEDS ORDERED: Lidocaine 1% PF 5 ML VIAL ONE (16:28)
[2018-09-22] MEDS ORDERED: ePHEDrine 50 MG/ML VIAL ONE (16:28)
[2018-09-22] MEDS ORDERED: Dexamethasone 20 MG/5 ML VIAL ONE (16:28)
[2018-09-22] MEDS ORDERED: PROPOFOL 200 MG/20 ML VIAL ONE (16:28)
[2018-09-22] MEDS: Sodium Chloride 0.9% 1,000 ML IV SCH (17:09)
[2018-09-22] MEDS: HYDROcodone/Acetaminophen 10/325 mg Tablet PO PRN ×2 (17:17→23:20)
[2018-09-22] MEDS: Gemfibrozil 600 MG TAB PO SCH (17:18)
[2018-09-22] MEDS ORDERED: Dextrose 50% Abboject 50 ML SYRINGE SLOW IVP PRN (17:21)
[2018-09-22] MEDS ORDERED: Dextrose 5% in Water 1,000 ML IV PRN (17:21)
[2018-09-22] MEDS ORDERED: Ondansetron PF 4 MG/2 ML Vial IVP PRN (17:23)
[2018-09-22] MEDS ORDERED: Lisinopril 10 MG TAB PO SCH (17:30)
[2018-09-22] MEDS: HumaLOG 300 UNITS/3 ML VIAL SC PRN (17:57)
[2018-09-22] MEDS: Morphine 4 MG/ML VIAL SLOW IVP PRN ×2 (18:34→20:47)
[2018-09-22] MEDS: Atorvastatin Calcium 40 MG TAB PO SCH (20:43)
[2018-09-22] MEDS: Pregabalin 75 MG CAP PO SCH (20:44)
[2018-09-22] MEDS: traMADol HCl 50 MG TAB PO SCH (20:45)
[2018-09-22] MEDS ORDERED: metFORMIN 500 MG TAB PO SCH (21:00)
[2018-09-22] MEDS ORDERED: glipiZIDE 5 MG TAB PO SCH (21:00)
[2018-09-22] MEDS: CEFAZOLIN 2 GM in Premix Bag 1 BAG IVPB SCH (21:40)
[2018-09-22] MEDS: hydrALAZINE 20 MG/ML VIAL SLOW IVP PRN (21:41)
--- NOTE | 2018-09-23 00:57 | CON ---
DATE OF CONSULTATION: REASON FOR CONSULTATION: Medical management. HISTORY OF PRESENT ILLNESS: Mr. Vargas is a pleasant 68-year-old male with past medical history significant for coronary artery disease, status post CABG, hypertension, hyperlipidemia, and type 2 diabetes mellitus, who presented to the hospital for elective C2 through C4 laminectomy. The patient today underwent successful procedure, and I am seeing him postoperatively up on the floor. The patient has some [id number] postoperative pain at this time, but it is conversing easily. He has no chest pain or shortness of breath. He has no nausea. He has tolerated a clear liquid diet without issue. The patient states that leading up to his surgery, he was experiencing some tingling in both of his hands and fingers bilaterally. He has also had some leg weakness and issues with his gait from [id number]. Otherwise, he has been doing well and has had no other complaints. REVIEW OF SYSTEMS: A 12-point review of systems performed and is negative except that stated above. PAST MEDICAL HISTORY: As mentioned in the HPI. PAST SURGICAL HISTORY: Right total shoulder arthroplasty, knee replacement, corneal transplant x2, penile implant, and three-vessel coronary artery bypass grafting in 2010. ALLERGIES: NO KNOWN DRUG ALLERGIES. HOME MEDICATIONS: 1. Atorvastatin 40 mg one tablet p.o. q.p.m. 2. Plavix 75 mg daily. 3. Gemfibrozil 600 mg p.o. b.i.d. 4. Glipizide 5 mg one tablet p.o. nightly. 5. Lisinopril 10 mg daily. 6. Meloxicam 15 mg one tablet p.o. daily. 7. Metformin 1000 mg p.o. b.i.d. 8. Omeprazole 40 mg tablet daily. 9. Lyrica 75 mg p.o. b.i.d. 10. Tramadol 50 mg one tablet p.o. t.i.d. 11. Aspirin 81 mg daily. 12. Farxiga 5 mg tablet daily. SOCIAL HISTORY: The patient is a current smoker. He previously has smoked for 17 years and then quit three months ago, but recently started smoking again. No alcohol or illicit drug use, lives with his , who is at bedside. PHYSICAL EXAMINATION: VITAL SIGNS: Blood pressure 157/78, pulse 89, O2 saturation is 94% on room air, and respirations are 18. GENERAL: The patient is a well-appearing male, in no acute distress. HEENT: Head is atraumatic and normocephalic. Mucous membranes are moist. NECK: He does have a bandage on posterior neck. CV: S1 and S2. Regular rate and rhythm. No appreciable murmurs, rubs, or gallops. LUNGS: Regular respiratory rate and pattern. Clear to auscultation bilaterally. ABDOMEN: Positive bowel sounds. Soft, nontender. EXTREMITIES: No appreciable edema. Both lower extremities are warm and well perfused. +5/5 strength bilaterally. NEUROLOGIC: Cranial nerves 2 through 12 are grossly intact. No focal deficits. LABORATORY DATA: White blood cell count 13, hemoglobin 12.1, and platelet count is 280. Chemistry shows sodium 141, potassium 4.0, chloride 104, anion gap 17, BUN 25, and creatinine is 1.06. ASSESSMENT: 1. Status post posterior cervical laminectomy C2 through C4 with Dr. Zavala today. 2. Coronary artery disease, status post three-vessel coronary artery bypass graft in 2010, stable. 3. Type 2 diabetes mellitus. 4. Hypertension. 5. Hyperlipidemia. 6. Gastroesophageal reflux disease. 7. Tobacco abuse. PLAN: At this time, we will initiate sliding scale for the patient's glucose coverage. We will continue home medications of lisinopril and statin. We will obviously hold off on aspirin and Plavix in the setting of recent surgery, and we will hold until okayed by Dr. Zavala. The patient will continue physical therapy. Consistent carb diet. We will follow along. Thank you for the consult. Job ID: [id number]
[2018-09-23] MEDS: hydrALAZINE 20 MG/ML VIAL SLOW IVP PRN (02:34)
[2018-09-23] MEDS: tiZANidine HCl 4 MG TAB PO PRN ×2 (02:36→12:29)
[2018-09-23] MEDS ORDERED: Fentanyl 100 MCG/2 ML VIAL ONE ×2 (03:19→04:41)
[2018-09-23] MEDS: CEFAZOLIN 2 GM in Premix Bag 1 BAG IVPB SCH ×4 (03:21→21:09)
[2018-09-23] MEDS: Sodium Chloride 0.9% 1,000 ML IV SCH ×2 (03:24→17:51)
[2018-09-23] MEDS ORDERED: Thrombin 5000 UNITS/5 ML VIAL ONE (03:57)
[2018-09-23] MEDS ORDERED: SUGAMMADEX SODIUM 200 MG/2 ML VIAL ONE (03:57)
[2018-09-23] MEDS ORDERED: Bacitracin Zinc Ointment 30 gm TUBE ONE (03:57)
[2018-09-23] MEDS ORDERED: SUGAMMADEX SODIUM 500 MG/5 ML VIAL ONE (03:57)
--- NOTE | 2018-09-23 04:25 | OP ---
DATE OF PROCEDURE: 09/23/2018 TRAINING AND DEVELOPMENT COORDINATOR: Jose Raul. PROCEDURE PERFORMED: Re-exploration, cervical wound. DESCRIPTION OF PROCEDURE: The patient was brought to the operating room and intubated. He was rolled in a prone position on gel-filled chest rolls with the head in the foam donut. The Steri-Strips were removed and the surgical site was prepped and draped in sterile fashion. The site was reopened and a dense hematoma was identified subfascially. This was evacuated and the spinal cord was completely decompressed. There were no obvious sites of active bleeding. We removed all old sutures and after complete evacuation of hematoma and hemostasis, vancomycin powder was applied. A drain was left in the epidural space and the wound was closed in anatomic layers. Job ID: [id number]
[2018-09-23] MEDS ORDERED: Promethazine HCl 25 MG/ML VIAL SLOW IVP PRN (04:38)
[2018-09-23] MEDS ORDERED: Promethazine HCl 25 MG/ML VIAL IM PRN (04:38)
[2018-09-23] MEDS ORDERED: Ketorolac Tromethamine 30 MG/ML VIAL IVP PRN (04:38)
[2018-09-23] MEDS ORDERED: Ondansetron HCl/PF 4 MG/2 ML Vial IVP PRN (04:38)
--- NOTE | 2018-09-23 04:43 | PRG ---
DATE OF SERVICE: 09/23/2018 We were notified that the patient had developed some dysesthesias in his arms and some increased weakness that had come on relatively suddenly. We came to evaluate the patient and he was found to have significant weakness and patchy sensory diminution. We decided to explore the wound in the concern for cervical hematoma given the timeframe and the severity of the neurologic deficit. This was done on emergency basis. No family was present and his significant other was called, but not contacted. Job ID: [id number]
[2018-09-23] MEDS: Dexamethasone 4 mg/ml Vial SLOW IVP SCH ×4 (06:34→23:48)
[2018-09-23 07:55] LABS: Hemoglobin 11.9 g/dL (14.0-18.0); Mean Corpuscular HGB CONC 33.9 g/dL (32.0-36.0); Mean Corpuscular Hemoglobin 29.8 pg (27.0-31.0); Mean Corpuscular Volume 88.1 fL (78.0-98.0); Mean Platelet Volume 7.8 fL (7.4-10.4); Platelet Count 288 thou/uL (130-400); RBC Distribution Width 13.9 % (11.5-14.5); Red Blood Cell (RBC) Count 3.98 mill/uL (4.70-6.10)
[2018-09-23 07:58] LABS: Band 9 % (5-11); Lymphocytes 33 % (21-51); MDiff Complete? YES; Monocytes 1 % (0-10); Neutrophil 57 % (42-75)
[2018-09-23] MEDS ORDERED: FARXIGA 5 MG PO SCH (09:00)
[2018-09-23] MEDS ORDERED: Insulin Glargine 10 UNITS in Pre-Filled Syringe 1 EACH SC SCH (09:00)
[2018-09-23] MEDS: Gemfibrozil 600 MG TAB PO SCH ×2 (09:54→16:22)
[2018-09-23] MEDS: Lisinopril 10 MG TAB PO SCH (09:54)
[2018-09-23] MEDS: traMADol HCl 50 MG TAB PO SCH ×3 (09:55→21:09)
[2018-09-23] MEDS: Famotidine/PF 20 mg/2ml Vial SLOW IVP SCH ×2 (09:57→21:09)
[2018-09-23] MEDS: Pregabalin 75 MG CAP PO SCH ×2 (09:57→21:10)
[2018-09-23] MEDS: Morphine 4 MG/ML VIAL SLOW IVP PRN ×2 (10:06→16:27)
--- NOTE | 2018-09-23 10:12 | CON ---
DATE OF CONSULTATION: 09/23/2018 SERVICE: Pulmonary Medicine. REASON FOR CONSULT: ICU patient. HISTORY OF PRESENT ILLNESS: The patient is a 68-year-old white male with past medical history significant for numbness in the arms. It was discovered that he had a cervical lesion that may benefit from a laminectomy. He underwent laminectomy and fusion on September 22, 2018. Immediately following the procedure, the patient had improving neurologic function. That being said, over the course of a couple of hours, he had increasing neurologic dysfunction, went back to the operating room. Hematoma was evacuated. He was then tucked into the ICU. He denies any current fevers, chills, nausea, or vomiting. He has profound weakness in the lower extremities. He has decreased strength in the right upper extremity, and very decreased strength in the left upper extremity. He has a lack of proprioception and vibratory sensation throughout. PAST MEDICAL HISTORY: 1. Hypertension. 2. Dyslipidemia. 3. Type 2 diabetes mellitus. 4. Coronary artery disease. PAST SURGICAL HISTORY: 1. Corneal transplant x2. 2. Penile implants. 3. Right total shoulder arthroplasty. 4. Coronary artery bypass graft surgery. 5. Cervical laminectomy, postop day 1. 6. Left total knee arthroplasty. FAMILY HISTORY: Noncontributory. SOCIAL HISTORY: He uses tobacco. Denies any excessive alcohol use or illicit drug use. He has no exposure to chemicals, dust, asbestos, or tuberculosis. ALLERGIES: NO KNOWN DRUG ALLERGIES. MEDICATIONS: List of his outpatient and inpatient medications were reviewed. I have added some sliding scale insulin. REVIEW OF SYSTEMS: General, head, ears, eyes, nose, throat, cardiovascular, respiratory, GI, , musculoskeletal, neurologic, and skin are negative except as mentioned in the HPI. PHYSICAL EXAMINATION: VITAL SIGNS: Afebrile, pulse 93, blood pressure 136/71, respirations 20, and saturation 94% on 2 L nasal cannula. GENERAL: The patient is awake and alert, in no apparent distress. LUNGS: Very good air entry with minimally prolonged expiratory phase. Appreciate no wheezing, rhonchi, or crackles today. HEART: Normal rate. Regular. ABDOMEN: Soft, nontender, and nondistended. Bowel sounds are positive. MUSCULOSKELETAL: No cyanosis or clubbing. No pitting in the bilateral lower extremities. NEUROLOGIC: The patient has a 2/5 strength in the bilateral lower extremities. He has 3/5 strength in the left upper extremity, and 4-/5 strength in the right upper extremity. He has sensation to sharp and dull throughout the upper and lower extremities. That being said, he lacks proprioception and vibratory sensation in the arms, in the chest down. ASSESSMENT: 1. Cervical laminectomy, complicated by hematoma, status post evacuation, postop day #1. 2. Type 2 diabetes mellitus. 3. Coronary artery disease. DISCUSSION AND PLAN: Obviously, all antiplatelet medication and anticoagulation will not be provided. I will put him on a medium dose sliding scale insulin. We will try to keep his blood pressure under 140. Pulmonary/Critical Care will continue to follow while the patient remains in this location. 70 minutes have been devoted to this patient in various activities. I personally reviewed all imaging studies and laboratory data noted within this document. For fifty percent of this time, I was interacting with the patient at the bedside or coordinating care with the care team. For the remainder of the time I was immediately available to the patient in the hospital unit. Job ID: [id number] MTDD
[2018-09-23] MEDS: HumaLOG 300 UNITS/3 ML VIAL SC PRN ×3 (11:43→21:11)
[2018-09-23] MEDS ORDERED: Lidocaine 1% PF 5 ML VIAL ONE (13:46)
[2018-09-23] MEDS ORDERED: Ondansetron PF 4 MG/2 ML Vial ONE (13:46)
[2018-09-23] MEDS ORDERED: PHENYLEPHRINE-NS 100 MCG/ML 10 ML SYRINGE ONE (13:46)
[2018-09-23] MEDS ORDERED: Dexamethasone 20 MG/5 ML VIAL ONE (13:46)
[2018-09-23] MEDS ORDERED: Succinylcholine Chloride 20 MG/ML 10 ml SYRINGE FS ONE (13:46)
[2018-09-23] MEDS ORDERED: Metoclopramide HCl 10 MG/2 ML VIAL ONE (13:46)
[2018-09-23] MEDS ORDERED: ePHEDrine 50 MG/ML VIAL ONE (13:46)
[2018-09-23] MEDS ORDERED: Rocuronium Bromide 10 MG/ML (10ML VIAL) ONE (13:46)
[2018-09-23] MEDS ORDERED: PROPOFOL 200 MG/20 ML VIAL ONE (13:46)
--- NOTE | 2018-09-23 14:22 | PDOC.PN ---
- Subjective Encounter Start Date: 09/23/18 Encounter Start Time: 11:20 Subjective: no new weakness after evacuation of hematoma -: no chest pain or sob - Objective Resuscitation Status - Order Detail: 09/22/18 16:09 Resuscitation Status Routine Resuscitation Status: FULL: Full Resuscitation MAR Reviewed: Yes Vital Signs & Weight: Vital Signs (12 hours) Temp Pulse Pulse Pulse Resp BP BP 09/23/18 12:00 98.3 F 09/23/18 11:55 96 88 168/85 H 09/23/18 09:54 190/95 H 09/23/18 08:00 09/23/18 07:00 98 F 09/23/18 03:30 09/23/18 02:45 97.7 F 93 20 09/23/18 02:34 190/95 H BP BP Pulse Ox 09/23/18 12:00 09/23/18 11:55 187/86 H 09/23/18 09:54 09/23/18 08:00 99 09/23/18 07:00 09/23/18 03:30 93 L 09/23/18 02:45 200/101 H 93 L 09/23/18 02:34 Weight Weight 193 lb 1.999 oz Most Recent Monitor Data Heart Rate from ECG 73 NIBP 150/75 NIBP BP-Mean 100 Respiration from ECG 12 SpO2 100 I&O: 09/22/18 09/23/18 09/24/18 06:59 06:59 06:59 Intake Total 3530 420 Output Total 5200 1625 Balance -1670 -1205 Result Diagrams: 09/23/18 06:22 09/22/18 09:24 Additional Labs: Accuchecks 09/23/18 09/23/18 09/22/18 11:21 06:18 21:03 POC Glucose 271 H 270 H 196 H 09/22/18 17:48 POC Glucose 224 H Phys Exam - Physical Examination HEENT: PERRLA, moist MMs Neck: no JVD, supple Respiratory: no wheezing, no rales Cardiovascular: RRR, no significant murmur Gastrointestinal: soft, non-tender, positive bowel sounds Musculoskeletal: no edema, pulses present moves upper extr better than lower and left better than right Psychiatric: A&O x 3 Dx/Plan (1) s/p cervical laminectomy Status: Acute Comment: C2-4 09/22,then reexploration to evacuate clots 09/23 (2) CAD (coronary artery disease) Code(s): I25.10 - ATHSCL HEART DISEASE OF [place] CORONARY ARTERY W/O ANG PCTRS Status: Chronic Qualifiers: Coronary Disease-Associated Artery/Lesion type: bypass graft [place] vs. transplanted heart: [place] heart Associated angina: without angina Qualified Code(s): I25.810 - Atherosclerosis of coronary artery bypass graft(s) without angina pectoris Comment: 2011 cabg x3 (3) Diabetes mellitus Code(s): E11.9 - TYPE 2 DIABETES MELLITUS WITHOUT COMPLICATIONS Status: Chronic Qualifiers: Diabetes mellitus type: type 2 Diabetes mellitus detention insulin use: without terminal superintendent use Diabetes mellitus complication status: with unspecified complications (4) Dyslipidemia Code(s): E78.5 - HYPERLIPIDEMIA, UNSPECIFIED Status: Chronic (5) Tobacco abuse Code(s): Z72.0 - TOBACCO USE Status: Chronic - Plan hemostable -: continue steroids, lisinopril, lipitor and gemfibrozil -: PT/OT per nsx advice -: humalog coverage * . Review of Systems - Medications/Allergies Allergies/Adverse Reactions: Allergies Allergy/AdvReac Type Severity Reaction Status Date / Time No Known Allergies Allergy Verified 09/22/18 16:17 Medications: Current Medications Hydrocodone Bitart/Acetaminophen ([place] 10/325) 1 tab PO Q4H PRN PRN Reason: PAIN (1-3) Hydrocodone Bitart/Acetaminophen ([place] 10/325) 2 tab PO Q4H PRN PRN Reason: PAIN (4-6) Last Admin: 09/22/18 23:20 Dose: 2 tab Al Hydroxide/Mg Hydroxide (Maalox) 30 ml PO Q4H PRN PRN Reason: Heartburn or Indigestion Atorvastatin Calcium (Lipitor) 40 mg PO HS IONA Last Admin: 09/22/18 20:43 Dose: 40 mg Cyclobenzaprine HCl (Flexeril) 10 mg PO TID [facility] Dexamethasone (Decadron) 4 mg SLOW IVP Q6HR I[facility] Last Admin: 09/23/18 11:43 Dose: 4 mg Dextrose/Water (Dextrose 50%) 25 gm SLOW IVP PRN PRN PRN Reason: Hypoglycemia Diphenhydramine HCl (Benadryl) 25 mg PO Q6H PRN PRN Reason: Itching Diphenhydramine HCl (Benadryl) 25 mg IVP Q6H PRN PRN Reason: Itching Famotidine (Pepcid) 20 mg SLOW IVP BID [facility] Last Admin: 09/23/18 09:57 Dose: Not Given Gemfibrozil (Lopid) 600 mg PO BID[facility] Last Admin: 09/23/18 09:54 Dose: 600 mg Glucagon (Glucagon) 1 mg IM PRN PRN PRN Reason: Hypoglycemia Hydralazine HCl (Apresoline) 10 mg SLOW IVP Q4H PRN PRN Reason: SBP > 180 and HR < 70 Last Admin: 09/23/18 02:34 Dose: 10 mg Sodium Chloride (Normal Saline 0.9%) 1,000 mls @ 75 mls/hr IV .[id number] [facility] Last Admin: 09/23/18 03:24 Dose: 1,000 mls Dextrose/Water (D5w) 1,000 mls @ 0 mls/hr IV .Q0M PRN PRN Reason: Hypoglycemia Cefazolin Sodium/Dextrose 2 gm (/ Device) 50 mls @ 100 mls/hr IVPB Q8HR [facility] Stop: 09/26/18 06:01 Last Admin: 09/23/18 06:34 Dose: 50 mls Insulin Glargine 10 units/ (Miscellaneous Medication) 0.1 mls @ 0 mls[facility] Last Admin: 09/23/18 09:56 Dose: 0.1 mls Insulin Human Lispro (Humalog) 0 units SC .MILD SLIDING SCALE PRN PRN Reason: Mild Correctional Scale Last Admin: 09/23/18 11:43 Dose: 4 unit Insulin Human Lispro (Humalog) 0 units SC .BEDTIME SLIDING SC PRN PRN Reason: Bedtime Correctional Scale Labetalol HCl (Normodyne) 20 mg SLOW IVP Q15MIN PRN PRN Reason: SBP GREATER THAN 160 Lisinopril (Zestril) 15 mg PO DAILY [facility] Last Admin: 09/23/18 09:54 Dose: 15 mg Magnesium Hydroxide (Milk Of Magnesium) 30 ml PO Q12H PRN PRN Reason: Constipation Morphine Sulfate (Morphine) 2 mg SLOW IVP Q1H PRN PRN Reason: Moderate Breakthrough Pain Morphine Sulfate (Morphine) 4 mg SLOW IVP Q1H PRN PRN Reason: SEVERE BREAKTHROUGH PAIN Last Admin: 09/23/18 10:06 Dose: 4 mg Ondansetron HCl (Zofran) 4 mg IVP Q6H PRN PRN Reason: Nausea/Vomiting Last Admin: 09/22/18 23:20 Dose: 4 mg Pantoprazole Sodium (Protonix) 40 mg PO DAILY [facility] Last Admin: 09/23/18 09:54 Dose: 40 mg Farxiga 5mg Patient' (s Home Medication) 1 each PO QAM [facility] Pregabalin (Lyrica) 75 mg PO BID [facility] Last Admin: 09/23/18 09:57 Dose: 75 mg Sodium Chloride (Flush - Normal Saline) 10 ml IVF PRN PRN PRN Reason: Saline Flush Tizanidine HCl (Zanaflex) 4 mg PO Q6H PRN PRN Reason: MUSCLE SPASM Last Admin: 09/23/18 12:29 Dose: 4 mg Tramadol HCl (Ultram) 50 mg PO Q6H PRN PRN Reason: PAIN (1-3) Tramadol HCl (Ultram) 100 mg PO Q6H PRN PRN Reason: PAIN (4-6) Last Admin: 09/23/18 02:35 Dose: 100 mg Tramadol HCl (Ultram) 50 mg PO TID [facility] Last Admin: 09/23/18 09:55 Dose: 50 mg
[2018-09-23] MEDS: Cyclobenzaprine 10 MG TAB PO SCH ×2 (14:31→21:45)
--- NOTE | 2018-09-23 15:51 | PRG ---
DATE OF SERVICE: 09/23/2018 Mr. Vargas is much improved from what he was last night prior to evacuation of his hematoma. He is able to lift his right arm briskly and shake hands and is also able to lift the left arm, although the proximal strength in the left arm is quite limited. He can wiggle his feet bilaterally and has begun to regain proximal strength in the left leg with limited proximal strength in the right leg at this time. Overall, I am optimistic for a favorable neurologic outcome and he is making progress almost by every hour. We will leave his JAKE drain in for another day or 2 as a precaution and I anticipate he will be in the ICU at least another day. He would likely also need inpatient rehab and I discussed this with him. Control of neck pain remains an issue and we will make sure to add muscle relaxers to the current regimen. Job ID: [id number]
[2018-09-23] MEDS: Atorvastatin Calcium 40 MG TAB PO SCH (21:10)
[2018-09-24] MEDS: Dexamethasone 4 mg/ml Vial SLOW IVP SCH ×4 (06:12→23:10)
[2018-09-24] MEDS: CEFAZOLIN 2 GM in Premix Bag 1 BAG IVPB SCH ×3 (06:12→22:48)
[2018-09-24] MEDS: HumaLOG 300 UNITS/3 ML VIAL SC PRN ×4 (06:13→21:01)
--- NOTE | 2018-09-24 08:31 | PRG ---
DATE OF SERVICE: 09/24/2018 SERVICE: Pulmonary Medicine. INTERVAL HISTORY: The patient is doing really well from respiratory standpoint. He has no shortness of breath. His strength is improving in the upper and lower extremities. Denies any current fevers, chills, cough, nausea, or vomiting. PHYSICAL EXAMINATION: VITAL SIGNS: Afebrile, pulse 89, blood pressure 179/75, respirations 13, and saturation 97% on 2 L nasal cannula. GENERAL: The patient is awake and alert, in no apparent distress. LUNGS: Excellent air entry. There is no prolonged expiratory phase. No wheezing or crackles are appreciated. HEART: Normal rate, regular. ABDOMEN: Soft, nontender, and nondistended. Bowel sounds are positive. MUSCULOSKELETAL: No cyanosis or clubbing. No pitting in bilateral lower extremities. NEUROLOGIC: Grossly nonfocal. LABORATORY DATA: WBC 24.0, hemoglobin 11.9, and platelets 288,000. Blood sugars ranged from 196 to 271. ASSESSMENT: 1. Cervical laminectomy, complicated by hematoma, status post evacuation, postop day #1. 2. Type 2 diabetes mellitus. 3. Coronary artery disease. 4. Cervical myelopathy, improving. DISCUSSION AND PLAN: We will continue supportive care. We will work with Physical Therapy and Occupational Therapy. We will try to get him out of bed into a chair. I will increase his insulin. He will remain in the ICU until cleared for transition to the floor by Neurosurgery. Pulmonary will continue to follow in this location. Job ID: [id number]
--- NOTE | 2018-09-24 08:46 | PRG ---
DATE OF SERVICE: 09/24/2018 The patient is postoperative day #2, status post evacuation of his epidural hematoma. He has improved significantly since this event. He is now able to lift his right arm off the bed and uses for tasks such as eating and drinking. He is also able to slightly lift the left arm, although the proximal strength continues to be quite weak. His lower extremity weakness has also improved and he is now able to flex and extend at the knees and slightly lift his legs off the bed. His JAKE overnight put out 10 mL. On exam this morning, the patient is awake, alert, no acute distress. Neurologic exam as above. JAKE drain has small amount of dark red blood in the bulb. We will continue to have him work with Physical Therapy and continue to mobilize and advance the diet. I will discontinue his fluids as he is taking in good p.o. intake. We will continue his current pain regimen as addition of Flexeril has helped. Anticipate need for inpatient rehab. Job ID: [id number] MTDD
[2018-09-24] MEDS: Pregabalin 75 MG CAP PO SCH ×2 (09:02→20:10)
[2018-09-24] MEDS: traMADol HCl 50 MG TAB PO SCH ×3 (09:02→20:11)
[2018-09-24] MEDS: Gemfibrozil 600 MG TAB PO SCH ×2 (09:02→16:43)
[2018-09-24] MEDS: Cyclobenzaprine 10 MG TAB PO SCH ×3 (09:03→20:11)
[2018-09-24] MEDS: Lisinopril 10 MG TAB PO SCH (09:03)
[2018-09-24] MEDS: Insulin Glargine 10 UNITS in Pre-Filled Syringe 1 EACH SC SCH ×2 (09:04→20:12)
[2018-09-24] MEDS: Famotidine/PF 20 mg/2ml Vial SLOW IVP SCH ×2 (09:04→20:10)
[2018-09-24] MEDS: Labetalol HCl 100 MG/20 ML VIAL SLOW IVP PRN ×3 (10:27→22:27)
--- NOTE | 2018-09-24 14:25 | PDOC.PN ---
- Subjective Encounter Start Date: 09/24/18 Encounter Start Time: 13:00 Subjective: awake, is trying to work with PT at bedside -: no sob or chest pain -: is moving his lower extremities and is happy he can move his left UE - Objective Resuscitation Status - Order Detail: 09/22/18 16:09 Resuscitation Status Routine Resuscitation Status: FULL: Full Resuscitation MAR Reviewed: Yes Vital Signs & Weight: Vital Signs (12 hours) Temp Pulse Pulse BP BP Pulse Ox 09/24/18 12:00 98 F 09/24/18 11:46 96 177/78 H 09/24/18 10:27 96 189/78 H 09/24/18 09:55 91 197/105 H 09/24/18 09:03 175/68 H 09/24/18 08:00 97.8 F 96 09/24/18 07:00 97.8 F 09/24/18 04:00 97.8 F Weight Weight 3.235 oz Most Recent Monitor Data Heart Rate from ECG 73 NIBP 127/66 NIBP BP-Mean 86 Respiration from ECG 11 SpO2 97 I&O: 09/23/18 09/24/18 09/25/18 06:59 06:59 06:59 Intake Total 3530 3197 1650 Output Total 5200 4681 6368 Balance -7197 -2326 -1806 Result Diagrams: 09/23/18 06:22 09/22/18 09:24 Additional Labs: Accuchecks 09/24/18 09/24/18 09/23/18 11:47 06:12 21:08 POC Glucose 250 H 230 H 295 H 09/23/18 16:24 POC Glucose 258 H Phys Exam - Physical Examination HEENT: PERRLA, moist MMs Neck: no JVD, supple Respiratory: no wheezing, no rales Cardiovascular: RRR, no significant murmur Gastrointestinal: soft, non-tender, positive bowel sounds Musculoskeletal: no edema, pulses present Neurological: moves all 4 limbs Psychiatric: normal affect, A&O x 3 Dx/Plan (1) s/p cervical laminectomy Status: Acute Comment: C2-4 09/22,then reexploration to evacuate clots 09/23 (2) CAD (coronary artery disease) Code(s): I25.10 - ATHSCL HEART DISEASE OF [place] CORONARY ARTERY W/O ANG PCTRS Status: Chronic Qualifiers: Coronary Disease-Associated Artery/Lesion type: bypass graft [place] vs. transplanted heart: [place] heart Associated angina: without angina Qualified Code(s): I25.810 - Atherosclerosis of coronary artery bypass graft(s) without angina pectoris Comment: 2011 cabg x3 (3) Diabetes mellitus Code(s): E11.9 - TYPE 2 DIABETES MELLITUS WITHOUT COMPLICATIONS Status: Chronic Qualifiers: Diabetes mellitus type: type 2 Diabetes mellitus long term care social worker insulin use: without retirement use Diabetes mellitus complication status: with unspecified complications (4) Dyslipidemia Code(s): E78.5 - HYPERLIPIDEMIA, UNSPECIFIED Status: Chronic (5) Tobacco abuse Code(s): Z72.0 - TOBACCO USE Status: Chronic - Plan hemostable -: neurologically improving, to work with PT/OT per nsx adv -: is awaiting rehab for dc plan -: to continue steroids, lipitor, gemfibrozil and lantus -: norco, tizanidine and morphine prn, lyrica and flexeril * . Review of Systems - Medications/Allergies Allergies/Adverse Reactions: Allergies Allergy/AdvReac Type Severity Reaction Status Date / Time No Known Allergies Allergy Verified 09/22/18 16:17 Medications: Current Medications Hydrocodone Bitart/Acetaminophen ([place] 10/325) 1 tab PO Q4H PRN PRN Reason: PAIN (1-3) Last Admin: 09/23/18 14:30 Dose: 1 tab Hydrocodone Bitart/Acetaminophen ([place] 10/325) 2 tab PO Q4H PRN PRN Reason: PAIN (4-6) Last Admin: 09/22/18 23:20 Dose: 2 tab Al Hydroxide/Mg Hydroxide (Maalox) 30 ml PO Q4H PRN PRN Reason: Heartburn or Indigestion Atorvastatin Calcium (Lipitor) 40 mg PO HS [facility] Last Admin: 09/23/18 21:10 Dose: 40 mg Cyclobenzaprine HCl (Flexeril) 10 mg PO TID [facility] Last Admin: 09/24/18 09:03 Dose: 10 mg Dexamethasone (Decadron) 4 mg SLOW IVP Q6HR [facility] Last Admin: 09/24/18 10:57 Dose: 4 mg Dextrose/Water (Dextrose 50%) 25 gm SLOW IVP PRN PRN PRN Reason: Hypoglycemia Diphenhydramine HCl (Benadryl) 25 mg PO Q6H PRN PRN Reason: Itching Diphenhydramine HCl (Benadryl) 25 mg IVP Q6H PRN PRN Reason: Itching Famotidine (Pepcid) 20 mg SLOW IVP BID [facility] Last Admin: 09/24/18 09:04 Dose: Not Given Gemfibrozil (Lopid) 600 mg PO BID-[facility] Last Admin: 09/24/18 09:02 Dose: 600 mg Glucagon (Glucagon) 1 mg IM PRN PRN PRN Reason: Hypoglycemia Hydralazine HCl (Apresoline) 10 mg SLOW IVP Q4H PRN PRN Reason: SBP > 180 and HR < 70 Last Admin: 09/23/18 02:34 Dose: 10 mg Dextrose/Water (D5w) 1,000 mls @ 0 mls/hr IV .Q0M PRN PRN Reason: Hypoglycemia Cefazolin Sodium/Dextrose 2 gm (/ Device) 50 mls @ 100 mls/hr IVPB Q8HR [facility] Stop: 09/26/18 06:01 Last Admin: 09/24/18 10:48 Dose: Not Given Insulin Glargine 10 units/ (Miscellaneous Medication) 0.1 mls @ 0 mls/hr SC BID [facility] Last Admin: 09/24/18 09:04 Dose: 0.1 mls Insulin Human Lispro (Humalog) 0 units SC .MILD SLIDING SCALE PRN PRN Reason: Mild Correctional Scale Last Admin: 09/24/18 11:45 Dose: 3 unit Insulin Human Lispro (Humalog) 0 units SC .BEDTIME SLIDING SC PRN PRN Reason: Bedtime Correctional Scale Last Admin: 09/24/18 06:13 Dose: 2 unit Labetalol HCl (Normodyne) 20 mg SLOW IVP Q15MIN PRN PRN Reason: SBP GREATER THAN 160 Last Admin: 09/24/18 11:46 Dose: 4 ml Lisinopril (Zestril) 15 mg PO DAILY [facility] Last Admin: 09/24/18 09:03 Dose: 15 mg Magnesium Hydroxide (Milk Of Magnesium) 30 ml PO Q12H PRN PRN Reason: Constipation Morphine Sulfate (Morphine) 2 mg SLOW IVP Q1H PRN PRN Reason: Moderate Breakthrough Pain Morphine Sulfate (Morphine) 4 mg SLOW IVP Q1H PRN PRN Reason: SEVERE BREAKTHROUGH PAIN Last Admin: 09/23/18 16:27 Dose: 4 mg Ondansetron HCl (Zofran) 4 mg IVP Q6H PRN PRN Reason: Nausea/Vomiting Last Admin: 09/22/18 23:20 Dose: 4 mg Pantoprazole Sodium (Protonix) 40 mg PO DAILY [facility] Last Admin: 09/24/18 09:04 Dose: 40 mg Farxiga 5mg Patient' (s Home Medication) 1 each PO QAM [facility] Pregabalin (Lyrica) 75 mg PO BID [facility] Last Admin: 09/24/18 09:02 Dose: 75 mg Sodium Chloride (Flush - Normal Saline) 10 ml IVF PRN PRN PRN Reason: Saline Flush Tizanidine HCl (Zanaflex) 4 mg PO Q6H PRN PRN Reason: MUSCLE SPASM Last Admin: 09/23/18 12:29 Dose: 4 mg Tramadol HCl (Ultram) 50 mg PO Q6H PRN PRN Reason: PAIN (1-3) Tramadol HCl (Ultram) 100 mg PO Q6H PRN PRN Reason: PAIN (4-6) Last Admin: 09/23/18 02:35 Dose: 100 mg Tramadol HCl (Ultram) 50 mg PO TID [facility] Last Admin: 09/24/18 09:02 Dose: 50 mg
[2018-09-24] MEDS: Atorvastatin Calcium 40 MG TAB PO SCH (20:11)
[2018-09-25] MEDS: Dexamethasone 4 mg/ml Vial SLOW IVP SCH ×3 (05:50→21:37)
[2018-09-25] MEDS: HumaLOG 300 UNITS/3 ML VIAL SC PRN ×4 (05:53→21:37)
[2018-09-25] MEDS: Gemfibrozil 600 MG TAB PO SCH ×2 (08:01→16:13)
[2018-09-25] MEDS: HYDROcodone/Acetaminophen 10/325 mg Tablet PO PRN (08:05)
[2018-09-25] MEDS: Labetalol HCl 100 MG/20 ML VIAL SLOW IVP PRN (08:10)
--- NOTE | 2018-09-25 08:43 | PRG ---
DATE OF SERVICE: 09/25/2018 The patient continues to improve neurologically and has improved strength in his left arm this morning. He also has improved sensation to bilateral upper and lower extremities. His JAKE drain was removed yesterday. His pain is well controlled and he is tolerating a regular diet. Patricio catheter remains in place. On exam this morning, the patient is awake and alert, in no acute distress. He has good strength in the right upper extremity. He is able to be use it for tasks such as eating and drinking without any difficulty. He has improved strength proximally in the left upper extremity. In the lower extremities, he is able to flex and extend, pulling the knees to the chest bilaterally. Incision remains clean, dry, and intact. Today, we will plan to remove his Patricio catheter, had started Decadron taper. We will plan to transfer to the floor. Continue to mobilize and work with PT. I will discuss with Case Management upon plan for rehab at some point. Job ID: [id number]
[2018-09-25] MEDS: Lisinopril 10 MG TAB PO SCH (09:33)
[2018-09-25] MEDS: Pregabalin 75 MG CAP PO SCH ×2 (09:33→20:24)
[2018-09-25] MEDS: traMADol HCl 50 MG TAB PO SCH ×3 (09:35→20:28)
[2018-09-25] MEDS: Cyclobenzaprine 10 MG TAB PO SCH ×3 (09:36→20:22)
[2018-09-25] MEDS: Famotidine/PF 20 mg/2ml Vial SLOW IVP SCH (09:38)
[2018-09-25] MEDS: Insulin Glargine 15 UNITS in Pre-Filled Syringe 1 EACH SC SCH ×2 (10:31→21:30)
--- NOTE | 2018-09-25 12:01 | PRG ---
DATE OF SERVICE: 09/25/2018 SERVICE: Pulmonary Medicine. INTERVAL HISTORY: The patient is doing really well from respiratory standpoint. Breathing comfortably. He has no complaints of chest pain, nausea, vomiting, fevers, or chills. His strength in upper extremities and lower extremities are much improved. He indicates that he cannot feel the floor very well. Otherwise, there were no events. Denies any shortness of breath. There are no fevers. PHYSICAL EXAMINATION: VITAL SIGNS: Afebrile, pulse 71, blood pressure 160/86, respirations 16, and saturation 99% on room air. GENERAL: The patient is awake and alert, in no apparent distress. LUNGS: Decent air entry with no prolonged expiratory phase or wheezing present. HEART: Normal rate. Regular. ABDOMEN: Soft, nontender, and nondistended. Bowel sounds are positive. MUSCULOSKELETAL: No cyanosis or clubbing. No pitting in the bilateral lower extremities. NEUROLOGIC: Grossly nonfocal. LABORATORY DATA: Blood sugar ranges from 168 to 320. ASSESSMENT: 1. Cervical laminectomy, complicated by hematoma, status post evacuation, postop day #1. 2. Cervical myelopathy, improving. 3. Coronary artery disease. 4. Type 2 diabetes mellitus. DISCUSSION AND PLAN: Supportive care will be continued. The patient will need aggressive physical therapy. Rehab center would be the most appropriate for him on discharge from the hospital. At this point, he remains stable for transition to the surgical unit. When he arrives there, he have no further requirements for inpatient Pulmonary/Critical Care opinion, and I will sign off. Please call with additional questions or concerns through time. Job ID: [id number]
--- NOTE | 2018-09-25 13:32 | PDOC.PN ---
- Subjective Encounter Start Date: 09/25/18 Encounter Start Time: 12:30 Subjective: awake, sitting in chair, oriented well -: at bedside - Objective Resuscitation Status - Order Detail: 09/22/18 16:09 Resuscitation Status Routine Resuscitation Status: FULL: Full Resuscitation MAR Reviewed: Yes Vital Signs & Weight: Vital Signs (12 hours) Temp Pulse BP Pulse Ox 09/25/18 09:33 177/78 H 09/25/18 08:10 96 177/78 H 09/25/18 08:00 99 09/25/18 07:00 98.3 F 09/25/18 04:00 98.6 F Weight Weight 3.235 oz Most Recent Monitor Data Heart Rate from ECG 71 NIBP 160/86 NIBP BP-Mean 110 Respiration from ECG 16 SpO2 96 I&O: 09/24/18 09/25/18 09/26/18 06:59 06:59 06:59 Intake Total 3197 2810 610 Output Total 4695 5820 120 Balance -5427 -7736 914 Result Diagrams: 09/23/18 06:22 09/22/18 09:24 Additional Labs: Accuchecks 09/25/18 09/25/18 09/24/18 07:56 05:54 21:01 POC Glucose 168 H 202 H 320 H 09/24/18 16:42 POC Glucose 233 H Phys Exam - Physical Examination HEENT: PERRLA, moist MMs Neck: no JVD, supple Respiratory: no wheezing, no rales Cardiovascular: RRR, no significant murmur Gastrointestinal: soft, non-tender, positive bowel sounds Musculoskeletal: no edema, pulses present can lift his left extre against gravity and hold for 10 sec Psychiatric: normal affect, A&O x 3 Dx/Plan (1) s/p cervical laminectomy Status: Acute Comment: C2-4 09/22,then reexploration to evacuate clots 09/23 (2) CAD (coronary artery disease) Code(s): I25.10 - ATHSCL HEART DISEASE OF [place] CORONARY ARTERY W/O ANG PCTRS Status: Chronic Qualifiers: Coronary Disease-Associated Artery/Lesion type: bypass graft [place] vs. transplanted heart: [place] heart Associated angina: without angina Qualified Code(s): I25.810 - Atherosclerosis of coronary artery bypass graft(s) without angina pectoris Comment: 2011 cabg x3 (3) Diabetes mellitus Code(s): E11.9 - TYPE 2 DIABETES MELLITUS WITHOUT COMPLICATIONS Status: Chronic Qualifiers: Diabetes mellitus type: type 2 Diabetes mellitus group home insulin use: without intermediate manager use Diabetes mellitus complication status: with unspecified complications (4) Dyslipidemia Code(s): E78.5 - HYPERLIPIDEMIA, UNSPECIFIED Status: Chronic (5) Tobacco abuse Code(s): Z72.0 - TOBACCO USE Status: Chronic - Plan neurologically is improving well -: await rehab eval -: lantus taper with steroid taper -: continue lisinopril, lipitor, gemfibrozil, dexamethasone taper -: lyrica and flexeril * . Review of Systems - Medications/Allergies Allergies/Adverse Reactions: Allergies Allergy/AdvReac Type Severity Reaction Status Date / Time No Known Allergies Allergy Verified 09/22/18 16:17 Medications: Current Medications Hydrocodone Bitart/Acetaminophen ([place] 10/325) 1 tab PO Q4H PRN PRN Reason: PAIN (1-3) Last Admin: 09/23/18 14:30 Dose: 1 tab Hydrocodone Bitart/Acetaminophen ([place] 10/325) 2 tab PO Q4H PRN PRN Reason: PAIN (4-6) Last Admin: 09/25/18 08:05 Dose: 2 tab Al Hydroxide/Mg Hydroxide (Maalox) 30 ml PO Q4H PRN PRN Reason: Heartburn or Indigestion Atorvastatin Calcium (Lipitor) 40 mg PO HS [facility] Last Admin: 09/24/18 20:11 Dose: 40 mg Cyclobenzaprine HCl (Flexeril) 10 mg PO TID [facility] Last Admin: 09/25/18 09:36 Dose: 10 mg Dexamethasone (Decadron) 2 mg SLOW IVP Q8HR [facility] Stop: 09/27/18 14:01 Dextrose/Water (Dextrose 50%) 25 gm SLOW IVP PRN PRN PRN Reason: Hypoglycemia Diphenhydramine HCl (Benadryl) 25 mg PO Q6H PRN PRN Reason: Itching Diphenhydramine HCl (Benadryl) 25 mg IVP Q6H PRN PRN Reason: Itching Gemfibrozil (Lopid) 600 mg PO BID-[facility] Last Admin: 09/25/18 08:01 Dose: 600 mg Glucagon (Glucagon) 1 mg IM PRN PRN PRN Reason: Hypoglycemia Hydralazine HCl (Apresoline) 10 mg SLOW IVP Q4H PRN PRN Reason: SBP > 180 and HR < 70 Last Admin: 09/23/18 02:34 Dose: 10 mg Dextrose/Water (D5w) 1,000 mls @ 0 mls/hr IV .Q0M PRN PRN Reason: Hypoglycemia Insulin Glargine 15 units/ (Miscellaneous Medication) 0.15 mls @ 0 mls/hr SC BID [facility] Last Admin: 09/25/18 10:31 Dose: 0.15 mls Insulin Human Lispro (Humalog) 0 units SC .MILD SLIDING SCALE PRN PRN Reason: Mild Correctional Scale Last Admin: 09/25/18 11:36 Dose: 4 unit Insulin Human Lispro (Humalog) 0 units SC .BEDTIME SLIDING SC PRN PRN Reason: Bedtime Correctional Scale Last Admin: 09/24/18 21:01 Dose: 4 unit Labetalol HCl (Normodyne) 20 mg SLOW IVP Q15MIN PRN PRN Reason: SBP GREATER THAN 160 Last Admin: 09/25/18 08:10 Dose: 20 ml Lisinopril (Zestril) 15 mg PO DAILY [facility] Last Admin: 09/25/18 09:33 Dose: 15 mg Magnesium Hydroxide (Milk Of Magnesium) 30 ml PO Q12H PRN PRN Reason: Constipation Morphine Sulfate (Morphine) 2 mg SLOW IVP Q1H PRN PRN Reason: Moderate Breakthrough Pain Morphine Sulfate (Morphine) 4 mg SLOW IVP Q1H PRN PRN Reason: SEVERE BREAKTHROUGH PAIN Last Admin: 09/23/18 16:27 Dose: 4 mg Ondansetron HCl (Zofran) 4 mg IVP Q6H PRN PRN Reason: Nausea/Vomiting Last Admin: 09/22/18 23:20 Dose: 4 mg Pantoprazole Sodium (Protonix) 40 mg PO DAILY [facility] Last Admin: 09/25/18 09:36 Dose: 40 mg Farxiga 5mg Patient' (s Home Medication) 1 each PO QAM [facility] Pregabalin (Lyrica) 75 mg PO BID [facility] Last Admin: 09/25/18 09:33 Dose: 75 mg Sodium Chloride (Flush - Normal Saline) 10 ml IVF PRN PRN PRN Reason: Saline Flush Tizanidine HCl (Zanaflex) 4 mg PO Q6H PRN PRN Reason: MUSCLE SPASM Last Admin: 09/23/18 12:29 Dose: 4 mg Tramadol HCl (Ultram) 50 mg PO Q6H PRN PRN Reason: PAIN (1-3) Tramadol HCl (Ultram) 100 mg PO Q6H PRN PRN Reason: PAIN (4-6) Last Admin: 09/23/18 02:35 Dose: 100 mg Tramadol HCl (Ultram) 50 mg PO TID [facility] Last Admin: 09/25/18 09:35 Dose: 50 mg
--- NOTE | 2018-09-25 14:34 | PRG ---
DATE OF SERVICE: 09/25/2018 Mr. Vargas continues to improve neurologically. He has some dysesthetic symptoms in the hands bilaterally, some residual left arm weakness, residual left leg weakness, and significant proprioceptive and sensory issues in the legs. However, his right leg strength is normal and his left leg strength is substantially improved to the point that he can bear weight. Once the proprioceptive deficit improves, he will be able to walk much better. He is being transferred to the floor today and will be medically stable for transfer to rehab as of tomorrow. I am optimistic for continued progress over the next several weeks. Job ID: [id number]
[2018-09-25] MEDS: Atorvastatin Calcium 40 MG TAB PO SCH (20:22)
[2018-09-26] MEDS: HYDROcodone/Acetaminophen 10/325 mg Tablet PO PRN (03:42)
[2018-09-26] MEDS: HumaLOG 300 UNITS/3 ML VIAL SC PRN ×3 (06:23→15:57)
[2018-09-26] MEDS: Dexamethasone 4 mg/ml Vial SLOW IVP SCH (06:24)
[2018-09-26] MEDS: Gemfibrozil 600 MG TAB PO SCH ×2 (06:24→15:58)
[2018-09-26] MEDS: hydrALAZINE 20 MG/ML VIAL SLOW IVP PRN (06:33)
[2018-09-26] MEDS: Cyclobenzaprine 10 MG TAB PO SCH ×2 (08:18→15:58)
[2018-09-26] MEDS: Lisinopril 10 MG TAB PO SCH (08:18)
[2018-09-26] MEDS: traMADol HCl 50 MG TAB PO SCH ×2 (08:19→15:58)
[2018-09-26] MEDS: Pregabalin 75 MG CAP PO SCH (08:20)
--- NOTE | 2018-09-26 10:07 | PRG ---
DATE OF SERVICE: 09/26/2018 SUBJECTIVE: The patient had no overnight events. He continues to improve neurologically. Yesterday, he worked with Physical Therapy and was able to stand for a short period of time at the bed. His left side is still more weak than the right, but overall his strength and sensation are improving. Yesterday, he was transferred to the floor and had Patricio catheter removed. He is not having any bowel or bladder issues. OBJECTIVE: On exam, this morning, he is awake, alert, in no acute distress. He is able to raise his right upper arm and has free active range of motion in the right upper extremity and left upper extremity. He has improved proximal strength and is able to now lift his arm and hold it for a short period up of the bed. In his lower extremities, he is able to pull his right and left knee up to his chest briskly. His incision is clean, dry, and intact. PLAN: We will continue to have the patient work with PT and I have discussed with Case Management about plan to transition to rehab soon. She will update me when a bed is available. Job ID: [id number]
[2018-09-26] MEDS: Insulin Glargine 15 UNITS in Pre-Filled Syringe 1 EACH SC SCH (10:23)
--- NOTE | 2018-09-26 15:23 | PDOC.PN ---
- Subjective Encounter Start Date: 09/26/18 Encounter Start Time: 07:45 Subjective: awake, not in distress -: talia was removed yesterday and had issues with urgency overnight -: is comfortable now - Objective Resuscitation Status - Order Detail: 09/22/18 16:09 Resuscitation Status Routine Resuscitation Status: FULL: Full Resuscitation MAR Reviewed: Yes Vital Signs & Weight: Vital Signs (12 hours) Temp Pulse Resp BP BP Pulse Ox 09/26/18 11:16 97.6 F 71 17 158/71 H 95 09/26/18 08:18 181/82 H 09/26/18 07:31 97.8 F 74 18 170/82 H 96 09/26/18 06:33 72 181/82 H 09/26/18 04:00 97.7 F 72 20 170/80 H 94 L Weight Weight 3.235 oz Most Recent Monitor Data Heart Rate from ECG 59 NIBP 146/70 NIBP BP-Mean 95 Respiration from ECG 14 SpO2 96 I&O: 09/25/18 09/26/18 09/27/18 06:59 06:59 06:59 Intake Total 2810 1210 Output Total 5820 1645 Balance -3010 -435 Result Diagrams: 09/23/18 06:22 09/22/18 09:24 Additional Labs: Accuchecks 09/26/18 09/26/18 09/25/18 11:15 05:19 21:09 POC Glucose 271 H 217 H 362 H 09/25/18 09/25/18 16:09 11:28 POC Glucose 178 H 297 H Phys Exam - Physical Examination HEENT: PERRLA, moist MMs Neck: no JVD, supple Respiratory: no wheezing, no rales Cardiovascular: RRR, no significant murmur Gastrointestinal: soft, non-tender, positive bowel sounds Musculoskeletal: no edema, pulses present Neurological: moves all 4 limbs left extr 3-4/5 strength Psychiatric: normal affect, A&O x 3 Dx/Plan (1) s/p cervical laminectomy Status: Acute Comment: C2-4 09/22,then reexploration to evacuate clots 09/23 (2) CAD (coronary artery disease) Code(s): I25.10 - ATHSCL HEART DISEASE OF [place] CORONARY ARTERY W/O ANG PCTRS Status: Chronic Qualifiers: Coronary Disease-Associated Artery/Lesion type: bypass graft [place] vs. transplanted heart: [place] heart Associated angina: without angina Qualified Code(s): I25.810 - Atherosclerosis of coronary artery bypass graft(s) without angina pectoris Comment: 2011 cabg x3 (3) Diabetes mellitus Code(s): E11.9 - TYPE 2 DIABETES MELLITUS WITHOUT COMPLICATIONS Status: Chronic Qualifiers: Diabetes mellitus type: type 2 Diabetes mellitus rn long term care insulin use: without fci use Diabetes mellitus complication status: with unspecified complications (4) Dyslipidemia Code(s): E78.5 - HYPERLIPIDEMIA, UNSPECIFIED Status: Chronic (5) Tobacco abuse Code(s): Z72.0 - TOBACCO USE Status: Chronic - Plan hemostable -: neurologically is improving steadily -: prefer him going to inpt rehab due to neurologic deficits, dc plan per nsx -: continue lipitor, lisinopril, lyrica, flexeril and gemfibrozil * . Review of Systems - Medications/Allergies Allergies/Adverse Reactions: Allergies Allergy/AdvReac Type Severity Reaction Status Date / Time No Known Allergies Allergy Verified 09/22/18 16:17 Medications: Current Medications Hydrocodone Bitart/Acetaminophen ([place] 10/325) 1 tab PO Q4H PRN PRN Reason: PAIN (1-3) Last Admin: 09/23/18 14:30 Dose: 1 tab Hydrocodone Bitart/Acetaminophen ([place] 10/325) 2 tab PO Q4H PRN PRN Reason: PAIN (4-6) Last Admin: 09/26/18 03:42 Dose: 2 tab Al Hydroxide/Mg Hydroxide (Maalox) 30 ml PO Q4H PRN PRN Reason: Heartburn or Indigestion Atorvastatin Calcium (Lipitor) 40 mg PO HS [facility] Last Admin: 09/25/18 20:22 Dose: 40 mg Cyclobenzaprine HCl (Flexeril) 10 mg PO TID [facility] Last Admin: 09/26/18 08:18 Dose: 10 mg Dexamethasone (Decadron) 2 mg SLOW IVP Q12HR [facility] Stop: 09/28/18 21:01 Dextrose/Water (Dextrose 50%) 25 gm SLOW IVP PRN PRN PRN Reason: Hypoglycemia Diphenhydramine HCl (Benadryl) 25 mg PO Q6H PRN PRN Reason: Itching Diphenhydramine HCl (Benadryl) 25 mg IVP Q6H PRN PRN Reason: Itching Gemfibrozil (Lopid) 600 mg PO BID-[facility] Last Admin: 09/26/18 06:24 Dose: 600 mg Glucagon (Glucagon) 1 mg IM PRN PRN PRN Reason: Hypoglycemia Hydralazine HCl (Apresoline) 10 mg SLOW IVP Q4H PRN PRN Reason: SBP > 180 and HR < 70 Last Admin: 09/26/18 06:33 Dose: 10 mg Dextrose/Water (D5w) 1,000 mls @ 0 mls/hr IV .Q0M PRN PRN Reason: Hypoglycemia Insulin Glargine 15 units/ (Miscellaneous Medication) 0.15 mls @ 0 mls/hr SC BID [facility] Last Admin: 09/26/18 10:23 Dose: 0.15 mls Insulin Human Lispro (Humalog) 0 units SC .MILD SLIDING SCALE PRN PRN Reason: Mild Correctional Scale Last Admin: 09/26/18 11:36 Dose: 4 unit Insulin Human Lispro (Humalog) 0 units SC .BEDTIME SLIDING SC PRN PRN Reason: Bedtime Correctional Scale Last Admin: 09/25/18 21:37 Dose: 4 unit Labetalol HCl (Normodyne) 20 mg SLOW IVP Q15MIN PRN PRN Reason: SBP GREATER THAN 160 Last Admin: 09/25/18 08:10 Dose: 20 ml Lisinopril (Zestril) 15 mg PO DAILY [facility] Last Admin: 09/26/18 08:18 Dose: 15 mg Magnesium Hydroxide (Milk Of Magnesium) 30 ml PO Q12H PRN PRN Reason: Constipation Morphine Sulfate (Morphine) 2 mg SLOW IVP Q1H PRN PRN Reason: Moderate Breakthrough Pain Morphine Sulfate (Morphine) 4 mg SLOW IVP Q1H PRN PRN Reason: SEVERE BREAKTHROUGH PAIN Last Admin: 09/23/18 16:27 Dose: 4 mg Ondansetron HCl (Zofran) 4 mg IVP Q6H PRN PRN Reason: Nausea/Vomiting Last Admin: 09/22/18 23:20 Dose: 4 mg Pantoprazole Sodium (Protonix) 40 mg PO DAILY [facility] Last Admin: 09/26/18 08:20 Dose: 40 mg Farxiga 5mg Patient' (s Home Medication) 1 each PO QAM [facility] Pregabalin (Lyrica) 75 mg PO BID [facility] Last Admin: 09/26/18 08:20 Dose: 75 mg Sodium Chloride (Flush - Normal Saline) 10 ml IVF PRN PRN PRN Reason: Saline Flush Tizanidine HCl (Zanaflex) 4 mg PO Q6H PRN PRN Reason: MUSCLE SPASM Last Admin: 09/23/18 12:29 Dose: 4 mg Tramadol HCl (Ultram) 50 mg PO Q6H PRN PRN Reason: PAIN (1-3) Tramadol HCl (Ultram) 100 mg PO Q6H PRN PRN Reason: PAIN (4-6) Last Admin: 09/23/18 02:35 Dose: 100 mg Tramadol HCl (Ultram) 50 mg PO TID [facility] Last Admin: 09/26/18 08:19 Dose: 50 mg
[2018-09-26 15:44] VITALS: BP 154/76; TEMP 98
[2018-09-26] MEDS ORDERED: Dexamethasone 4 mg/ml Vial SLOW IVP SCH (21:00)
--- NOTE | 2018-09-26 21:02 | DIS ---
DATE OF ADMISSION: 09/22/2018 DATE OF DISCHARGE: 09/26/2018 HISTORY OF PRESENT ILLNESS: The patient is a 68-year-old male who was originally admitted on 09/22/2018, for cervical stenosis with cervical myelopathy and underwent C2-C3 posterior laminectomy and fusion. Following the surgery, he was transitioned to the Med/Surg floor. Overnight during his 1st night, he developed worsening dysesthesias and weakness in bilateral upper and lower extremities. Considering his severe neurologic decline, he was taken back to the emergency department for exploration and an epidural hematoma was found at that time. This was evacuated and a JAKE drain was placed intraoperatively. The patient was then transitioned to the ICU where he was monitored closely. JAKE drain output trended down nicely and it was removed the following day. Following his 2nd surgery, he had significant improvement in his new and worsening weakness in the upper and lower extremities. His left upper extremity had slightly more profound weakness than the right upper extremity. He was able to pull his legs up to his chest and began mobilizing with Physical Therapy. He was able to stand for short period at the bedside. His Patricio catheter was also removed during his admission course and he was urinating without any difficulty. We felt that he would benefit from rehabilitation and the patient ultimately preferred usp bed in [place] to be closer to his family. He was transitioned and discharged on 09/26/2018. I will follow up with the patient in 2 weeks to reassess his progress and also to remove the león at that time. I have discussed this plan with Dr. Zavala who is in agreement. Job ID: [id number] MTDD
== END 2018-09-26 17:25 | disposition critical access hospital (66) | DRG 472 ==
LOC: SURG A 08:00 → CCU 09-23 05:19 → SURG B 09-25 17:06
PROVIDERS: ADMIT Neurological Surgery; ATTEND Neurological Surgery
PROC: 0RG2071 Fusion of 2 or more Cervical Vertebral Joints with Autologous Tissue Substitute, Posterior Approach, Posterior Column, Open Approach (ICD-10-PCS; principal; 2018-09-22)
PROC: 00CU0ZZ Extirpation of Matter from Spinal Canal, Open Approach (ICD-10-PCS; 2018-09-23)
DX: M48.02 Spinal stenosis, cervical region (principal); G99.2 Myelopathy in diseases classified elsewhere; G97.62 Postprocedural hematoma of a nervous system organ or structure following other procedure; I25.10 Atherosclerotic heart disease of native coronary artery without angina pectoris; I10 Essential (primary) hypertension; E78.5 Hyperlipidemia, unspecified; E11.9 Type 2 diabetes mellitus without complications; Z94.7 Corneal transplant status; K21.9 Gastro-esophageal reflux disease without esophagitis; F17.200 Nicotine dependence, unspecified, uncomplicated; Z95.1 Presence of aortocoronary bypass graft; Z79.01 Long term (current) use of anticoagulants; Z96.611 Presence of right artificial shoulder joint; Z79.84 Long term (current) use of oral hypoglycemic drugs; Z79.82 Long term (current) use of aspirin; Y83.8 Other surgical procedures as the cause of abnormal reaction of the patient, or of later complication, without mention of misadventure at the time of the procedure
CPT/HCPCS: 36415; 36416; 76000; 80048; 85025; 93005; 93010; C1713; C1768; J0360; J0690; J1100; J1170; J1815; J2001; J2270; J2405; J2704; J2765; J3010; J3370; J3490; S0028

== ENCOUNTER 2018-11-07 16:00 | Outpatient (CLI) | payer MEDICARE ==
--- NOTE | 2018-11-07 17:57 | RAD ---
CERVICAL SPINE THREE VIEWS: HISTORY: Cervical spondylosis. Postop followup. COMPARISON: 10/11/2018 FINDINGS: There are pedicle screws and rods on the right, transfixing C2, C3, and C4. Degenerative changes are seen on the lateral view with loss of disk space, hypertrophic spurring, and spondylosis. Slight po sterior subluxation of C3 on C4 is stable in appearance. No change in the appearance from the postop erative exam of 10/11/2018. IMPRESSION: Stable postoperative and degenerative changes of the cervical spine. POS: JIN
== END 2018-11-07 16:01 | disposition home or self-care (01) ==
LOC: TBSIIMAG 16:00
PROVIDERS: ATTEND Neurological Surgery
DX: M47.12 Other spondylosis with myelopathy, cervical region (principal); Z98.890 Other specified postprocedural states
CPT/HCPCS: 72040

== ENCOUNTER 2018-12-13 14:34 | Outpatient (CLI) | payer MEDICARE ==
--- NOTE | 2018-12-13 16:04 | RAD ---
3 VIEWS CERVICAL SPINE: Date: 12/13/18 COMPARISON: 11/07/18. HISTORY: Radiculopathy. Previous surgery. FINDINGS: Stable unilateral right-sided posterior element screws at C2, C3, and C4. There does appear to be per ihardware lucency involving the screw at C2 and C3. No change in alignment on the lateral projection. Moderate loss of disc space height at C3-C4. Mild to moderate loss of disc space height at C4-C5. Mo derate loss of disc space height at C5-C6 and C6-C7. There is persistent anterolisthesis of C2 upon C 3, 0.3 cm (previously measuring 0.2 cm). On the AP projection, facet arthropathy is noted. On the open-mouth projection, lateral masses of C1 and C2 articulate appropriately. Odontoid process is intact. IMPRESSION: Stable right posterior element fusion from C2 through C4. There does appear to be perihardware lucenc y involving the screws as they traverse the right posterior element at C2 and C3. POS: TPC
== END 2018-12-13 14:35 | disposition home or self-care (01) ==
LOC: TBSIIMAG 14:34
PROVIDERS: ATTEND Neurological Surgery
DX: M47.12 Other spondylosis with myelopathy, cervical region (principal); Z98.1 Arthrodesis status
CPT/HCPCS: 72040

== ENCOUNTER 2019-01-02 06:53 | Day surgery (SDC) | payer MEDICARE ==
[2019-01-01 09:16] VITALS: BMI 28.1
[2019-01-02 08:00] VITALS: BP 176/83; TEMP 97.6
--- NOTE | 2019-01-02 11:25 | RAD ---
Myelogram of Cervical spine CLINICAL HISTORY: Cervical spondylosis, with neuropathy PROCEDURE: Informed consent was obtained. [employer] imaging was performed. Patient was placed in a prone position and the skin of the low back was prepped and draped in a standard sterile fashion. Topical anesthesia was achieved with buffered 1% lidocaine. 22-gauge spinal needle was then advanced uneventf ully into the thecal sac from a posterior para midline approach at the leftL2-3level. 9 cc of radiopaque contrast was instilled under low pressure into the thecal sac, upon return of clear colorl ess CSF the needle hub. Imaging was stored for documentation. Needle was removed. Patient tolerated the procedure well, without complication evident. Patient was then transferred to CT to undergo subsequent CT myelogram imaging. Reference separate exa m(s) for additional details. FINDINGS: Intraoperative imaging reveals a needle overlying the lumbar spinal canal, with subsequent instillation of radiopaque contrast within the thecal sac. Fluoroscopy data:0.2minutes, 24mcg/sq m IMPRESSION: Technically successful myelogram, as above.
--- NOTE | 2019-01-02 11:34 | CT ---
CT CERVICAL SPINE WITH CONTRAST: HISTORY: Cervical spondylosis with myelopathy. COMPARISON: Cervical spine MRI 08/30/2018 is referenced. FINDINGS: Craniocervical junction is intact. Degenerative hypertrophy at the atlantodental articulation. There is interval performance of posterior decompression and posterior fusion, with right side pedicl e screws involving C2, C3 and C4 levels. A mild degree of perihardware lucency is present at the right C2 pedicle screw, indicating loosening. There is grade 1 spondylolisthesis at C3, new from prio r exam. C1-2:No significant stenosis. C2-3:As described above, there is grade 1 spondylolisthesis, which has developed from prior exam. Rob ateral uncinate process and facet hypertrophy present. Mild effacement of ventral thecal sac and mild osseous narrowing of each neural foramen. C3-4:Broad-based disc osteophyte with ventral cord flattening. The degree of stenosis has improved fr om prior MRI status post decompression. There is bilateral uncinate process and facet hypertrophy with moderate left and mild right neural foraminal stenosis. C4-5:Broad-based osteophyte ridge is present with mild to moderate central canal stenosis and ventral cord flattening. Bilateral uncinate process and right greater than left facet hypertrophy present with moderate osseous compromise of each neural foramen. C5-6:Mild focal kyphotic angulation. Broad-based disc osteophyte with bilateral uncinate process, and right greater than left facet hypertrophy producing moderate right and [id number] left neural foraminal stenosis. There is mild central canal stenosis with slight effacement of ventral asp ect of cervical spinal cord. C6-7: Broad-based osteophyte with [id number] central canal stenosis and mild ventral cord effac ement. There is bilateral uncinate process and facet hypertrophy with moderate to severe bilateral osseous compromise of the neural foramina. C7-T1:Broad-based disc osteophyte with mild effacement of ventral thecal sac. There is a lateralized right osteophyte with moderate right osseous compromise of neural foramen. There is mild narrowing of the left neural foramen. IMPRESSION: 1. Status post decompression and posterior fusion of the C2-C4 level with improved central canal corinne nosis, notably at the C3-4 level. 2. There is hardware lucency about the right C2 pedicle screw indicative of loosening, along with in terval development of grade 1 spondylolisthesis at C2-3. Transcribed Date/Time: 01/02/2019 12:03 PM
[2019-01-02] MEDS ORDERED: Iopamidol-M 300 61% 15 ML VIAL ONE (12:53)
== END 2019-01-02 10:20 | disposition home or self-care (01) ==
LOC: RAD 06:53
PROVIDERS: ATTEND Neurological Surgery
PROC: B01B1ZZ Fluoroscopy of Spinal Cord using Low Osmolar Contrast (ICD-10-PCS; principal; 2019-01-02)
DX: M47.12 Other spondylosis with myelopathy, cervical region (principal); M43.12 Spondylolisthesis, cervical region; M48.02 Spinal stenosis, cervical region; F17.200 Nicotine dependence, unspecified, uncomplicated; I25.10 Atherosclerotic heart disease of native coronary artery without angina pectoris; M19.90 Unspecified osteoarthritis, unspecified site; E11.9 Type 2 diabetes mellitus without complications; E78.5 Hyperlipidemia, unspecified; K21.9 Gastro-esophageal reflux disease without esophagitis; Z79.1 Long term (current) use of non-steroidal anti-inflammatories (NSAID); Z79.02 Long term (current) use of antithrombotics/antiplatelets; Z79.84 Long term (current) use of oral hypoglycemic drugs; Z79.82 Long term (current) use of aspirin; Z79.891 Long term (current) use of opiate analgesic; Z79.899 Other long term (current) drug therapy; Z98.1 Arthrodesis status
CPT/HCPCS: 62302; 72126; Q9967

== ENCOUNTER 2020-03-06 06:53 | Outpatient (CLI) | payer MEDICARE ==
[2020-03-05 14:29] VITALS: BMI 28.1
[2020-03-06 08:20] VITALS: BP 170/78; TEMP 97.8
--- NOTE | 2020-03-06 09:34 | RAD ---
Exam: Cervical myelogram HISTORY: Cervical myelopathy. COMPARISON: 01/02/2019. Exposure: 1 minute, 1184.0 microgram/M2. FINDINGS: Two-view keno writer / runner lumbar spine radiograph demonstrates 5 lumbar type vertebra. Moderate degenerative dis c disease at L2-L3. There is prominent osteophyte formation at L2-L3 and L3-L4. Grade 1 retrolisthesis of L2 upon L3. Grade 1 anterolisthesis of L5 upon S1. Atherosclerosis of the aorta is identified. Visualized sacrum and bony pelvis are intact. Cervical spine 2 views: Unilateral right-sided posterior element screw at C2, C3 and C4. There appear s to be perihardware lucency involving the right C2 screw Successful lumbar puncture. A total of 9 mL of Isovue-M 300 contrast was administered intrathecally. No immediate or postprocedural complications. TECHNIQUE: Consent obtained to perform a lumbar puncture for cervical myelogram. L2-L3 was deemed lisa ropriate. Skin was prepped and draped in a sterile fashion. 1% lidocaine, buffered with sodium bicarbonate was used for local anesthesia. Under fluoroscopic guidance, 22-gauge spinal needle was ad vanced into the CSF space. Prompt flow of clear CSF into the hub of the needle. Via a short tubing catheter, total of 9 mL of Isovue-M 300 contrast was administered intrathecally. Patient tolerated th e procedure well. No immediate or postprocedure complications. IMPRESSION: Successful lumbar puncture for cervical myelogram. Transcribed Date/Time: 03/06/2020 9:50 AM
--- NOTE | 2020-03-06 10:02 | CT ---
Exam: Post myelogram cervical spine CT HISTORY:Cervical myelopathy. Spinal cord disease. COMPARISON: 01/02/2019 FINDINGS: Unilateral right-sided transfacet screw at C2, C3 and C4 is redemonstrated. Persistent perihardware l ucency involving the right C2 transfacet screw, unchanged. Stable straightening of cervical lordosis. No craniocervical dissociation. Appropriate alignment of t he lateral masses of C1 and C2. Intact odontoid process. Laminectomy defect at C2-C3 and C3-C4. C2-C3: Posterior decompressive laminectomy defect. Broad-based disc osteophyte complex. Mild central canal stenosis. Moderate right and mild left neural foraminal narrowing due to uncovertebral hypertrophy. C3-C4: Posterior laminectomy defect. Broad-based disc osteophyte complex. Deformity of the thecal sac and cervical cord. Moderate central canal stenosis. Mild bilateral neural foraminal narrowing due to uncovertebral hypertrophy. C4-C5:Broad-based disc osteophyte complex. Mild to moderate central canal stenosis. Mild bilateral ne ural foraminal narrowing due to uncovertebral hypertrophy. C5-C6: Broad-based disc osteophyte complex. Moderate central canal stenosis. Mild bilateral neural fo raminal narrowing due to uncovertebral hypertrophy. C6-C7:Broad-based disc osteophyte complex. Moderate to severe central canal stenosis. Moderate bilate ral neural foraminal narrowing C7-T1: Broad-based disc osteophyte complex. Mild central canal stenosis. Patent bilateral neural fora radha. IMPRESSION: 1.Multilevel degenerative changes of the cervical spine as detailed above. 2. Postsurgical changes and fusion changes of the cervical spine as detailed above. Persistent lucenc y involving the right C2 facet screw. Transcribed Date/Time: 03/06/2020 10:51 AM
[2020-03-06] MEDS ORDERED: Iopamidol-M 300 61% 15 ML VIAL ONE (13:57)
== END 2020-03-06 10:20 | disposition home or self-care (01) ==
LOC: SDC/OP 06:53
PROVIDERS: ATTEND Neurological Surgery
DX: G95.9 Disease of spinal cord, unspecified (principal); M47.812 Spondylosis without myelopathy or radiculopathy, cervical region; Z98.1 Arthrodesis status
CPT/HCPCS: 62302; 72126; Q9967

== ENCOUNTER 2020-07-16 12:43 | Outpatient (CLI) | payer MEDICARE | END 2020-07-16 12:44 | disposition home or self-care (01) | LOC: TBSIIMAG 12:43 | PROVIDERS: ATTEND Family Medicine | DX: M47.12 Other spondylosis with myelopathy, cervical region (principal); Z98.890 Other specified postprocedural states | CPT/HCPCS: 72040 ==